=== PATIENT | male | born 1955 | race Caucasian/White ===

== ENCOUNTER → 2020-05-30 13:51 | Outpatient (CLI) | payer OTHER, SELFPAY ==
[2020-05-30 14:14] LABS: Hematocrit 46.3 % (40-54); Hemoglobin 15.7 g/dL (13.0-16.5); Mean Corp Hgb Conc 33.9 g/dL (32-36); Mean Corpuscular Hgb 28.3 pg (27.0-32.0); Mean Corpuscular Volume 83.6 fL (80-94); Mean Platelet Vol. 11.5 fl (6.2-12.0); Platelet Count 175 K/mm3 (150-450); RBC Distribution Width CV 13.2 % (11.6-14.6); RBC Distribution Width SD 39.5 fl (35.1-43.9); Red Blood Count 5.54 M/mm3 (4.6-6.2); White Blood Count 7.7 K/mm3 (4.4-11.0)
[2020-05-30 14:35] LABS: BUN 20 mg/dL (7-18); BUN/Creat Ratio 15.2 RATIO (10-20); Calcium,Total 9.3 mg/dL (8.5-10.1); Chloride 109 mmol/L (98-107); Creatinine, Serum 1.32 mg/dL (0.70-1.30); EST Glomerular Filtration Rate 58 mL/min (>60); Est Glom Filt Rate - Afr Amer 70 mL/min (>60); Glucose 90 mg/dL (74-106); Magnesium 2.1 mg/dL (1.6-2.6); Phosphorus 3.2 mg/dL (2.5-4.9); Potassium 3.8 mmol/L (3.5-5.1); Sodium Level 142 mmol/L (136-145); Uric Acid 7.3 mg/dL (3.5-7.2)
[2020-05-30 14:38] LABS: Vitamin D,25 Hydroxy 27.2 ng/mL
[2020-05-30 15:08] LABS: Microalbumin,Random Urine 19.7 mg/L (NO RANGE EST.); Microalbumin:Creatinine Ratio 7.1 mg/g CRE (<30 mg/g CRE)
[2020-05-30 15:19] LABS: PTHIN 34.5 pg/mL (18.4-80.1)
== END ==
PROVIDERS: Referring Provider Internal Medicine Nephrology; Visit Provider Internal Medicine Nephrology
DX: E55.9 Vitamin D deficiency, unspecified (principal); N18.3 Chronic kidney disease, stage 3 (moderate); M10.9 Gout, unspecified
CPT/HCPCS: 36415; 80069; 82043; 82306; 82570; 83735; 83970; 84550; 85027

== ENCOUNTER → 2020-08-30 09:10 | Outpatient (CLI) | payer OTHER, SELFPAY ==
--- NOTE | 2020-08-30 09:22 | US_ITS ---
STUDY: RENAL ULTRASOUND - COMPLETE REASON FOR EXAM: Male, 65 years old. 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 COMPARISON: None. FINDINGS: RIGHT KIDNEY: Normal location of the right kidney, which is normal in size. The right kidney measures 11.9 cm x 6.5 cm x 5.8 cm. There is a normal cortex of the right kidney. The renal cortex measures 11.6 cm. There is a 1.3 cm x 1 cm x 1 cm cyst. There are no right renal calculi. There is no right hydronephrosis. DISTAL RIGHT URETER: There is non-visualization of the distal right ureter. There is no demonstrated right ureterovesical junction calculus. There is a visualized right ureteral jet. LEFT KIDNEY: Normal location of the left kidney, which is normal in size. The left kidney measures 12.4 cm x 7.4 cm x 5.8 cm. There is a normal cortex of the left kidney. The renal cortex measures 1.9 cm. There is a 3 cm x 2.9 cm x 3.1 cm renal cysts. There are no left renal calculi. There is no left hydronephrosis. DISTAL LEFT URETER: There is non-visualization of the distal left ureter. There is no demonstrated left ureterovesical junction calculus. There is a visualized left ureteral jet. BLADDER: The distended urinary bladder has a volume of 332 ml. There is a normal wall thickness of the distended urinary bladder. There is no demonstrated mass within the urinary bladder. There are no demonstrated bladder calculi. Heterogeneous enlarged prostate measuring 4.3 cm x 6.2 cm x 4.9 cm. US/Kidney and Bladder IMPRESSION: Bilateral renal cysts. Enlarged and heterogeneous prostate. Electronically Signed: Jeremie Car, at 15:11 EST , Service support ,
[2020-08-30 10:04] LABS: PSA,Total- Diagnostic 7.27 ng/mL (0.0-4.0)
== END ==
PROVIDERS: Referring Provider Urology; Visit Provider Urology
DX: N28.1 Cyst of kidney, acquired (principal); N40.1 Benign prostatic hyperplasia with lower urinary tract symptoms
CPT/HCPCS: 36415; 76770; 84153

== ENCOUNTER → 2021-02-24 12:11 | Outpatient (CLI) | payer MEDICARE, OTHER, SELFPAY | PROVIDERS: PCP Family Medicine; Referring Provider Urology; Visit Provider Urology | DX: R97.20 Elevated prostate specific antigen [PSA] (principal) | CPT/HCPCS: 36415; 84153 ==

== ENCOUNTER → 2021-07-01 10:48 | Outpatient (CLI) | payer MEDICARE, OTHER, SELFPAY ==
[2021-07-01 11:50] LABS: Hematocrit 47.9 % (40-54); Hemoglobin 15.9 g/dL (13.0-16.5); Mean Corp Hgb Conc 33.2 g/dL (32-36); Mean Corpuscular Hgb 28.3 pg (27.0-32.0); Mean Corpuscular Volume 85.4 fL (80-94); Mean Platelet Vol. 11.6 fl (6.2-12.0); Platelet Count 173 K/mm3 (150-450); RBC Distribution Width CV 12.9 % (11.6-14.6); RBC Distribution Width SD 40.3 fl (35.1-43.9); Red Blood Count 5.61 M/mm3 (4.6-6.2); White Blood Count 4.9 K/mm3 (4.4-11.0)
[2021-07-01 12:07] LABS: Albumin, Serum 3.4 g/dL (3.2-5.0); BUN 33 mg/dL (7-18); BUN/Creat Ratio 21.4 RATIO (10-20); Calcium,Total 9.6 mg/dL (8.5-10.1); Chloride 105 mmol/L (98-107); Creatinine, Serum 1.54 mg/dL (0.70-1.30); EST Glomerular Filtration Rate 48 mL/min (>60); Est Glom Filt Rate - Afr Amer 59 mL/min (>60); Glucose 107 mg/dL (74-106); Magnesium 2.3 mg/dL (1.6-2.6); Phosphorus 2.9 mg/dL (2.5-4.9); Sodium Level 144 mmol/L (136-145)
[2021-07-01 12:09] LABS: Microalbumin,Random Urine 36.9 mg/L (NO RANGE EST.); Microalbumin:Creatinine Ratio 15.2 mg/g CRE (<30 mg/g CRE)
[2021-07-01 12:12] LABS: Vitamin D,25 Hydroxy 43.8 ng/mL
[2021-07-01 12:24] LABS: PTHIN 41.8 pg/mL (18.4-80.1)
== END ==
PROVIDERS: PCP Family Medicine; Referring Provider Internal Medicine Nephrology; Visit Provider Internal Medicine Nephrology
DX: E55.9 Vitamin D deficiency, unspecified (principal); N18.30 Chronic kidney disease, stage 3 unspecified; M10.9 Gout, unspecified
CPT/HCPCS: 36415; 80069; 82043; 82306; 82570; 83735; 83970; 84550; 85027

== ENCOUNTER → 2021-09-05 10:12 | Outpatient (CLI) | payer MEDICARE, OTHER, SELFPAY ==
[2021-09-05 11:34] LABS: PSA,Total - Annual Screen 5.52 ng/mL (0.00-4.00)
[2021-09-05 16:13] LABS: PSA,Total- Diagnostic 5.52 ng/mL (0.0-4.0)
== END ==
PROVIDERS: PCP Family Medicine; Referring Provider Urology; Visit Provider Urology
DX: R97.20 Elevated prostate specific antigen [PSA] (principal); Z12.5 Encounter for screening for malignant neoplasm of prostate
CPT/HCPCS: 36415; 84153; G0103

== ENCOUNTER 2021-12-29 11:54 | Outpatient (CLI) | payer MEDICARE, OTHER, SELFPAY ==
[2021-12-29 13:35] LABS: Hematocrit 47.9 % (40-54); Mean Corp Hgb Conc 33.4 g/dL (32-36); Mean Corpuscular Hgb 27.8 pg (27.0-32.0); Mean Corpuscular Volume 83.3 fL (80-94); Mean Platelet Vol. 11.4 fl (6.2-12.0); Platelet Count 153 K/mm3 (150-450); RBC Distribution Width SD 39.4 fl (35.1-43.9); Red Blood Count 5.75 M/mm3 (4.6-6.2); White Blood Count 6.5 K/mm3 (4.4-11.0)
[2021-12-29 13:53] LABS: Microalbumin,Random Urine 77.8 mg/L (NO RANGE EST.); Microalbumin:Creatinine Ratio 41.4 mg/g CRE (<30 mg/g CRE)
[2021-12-29 14:05] LABS: Albumin, Serum 3.9 g/dL (3.2-5.0); BUN 16 mg/dL (7-18); BUN/Creat Ratio 13.3 RATIO (10-20); Calcium,Total 9.2 mg/dL (8.5-10.1); Chloride 106 mmol/L (98-107); EST Glomerular Filtration Rate 64 mL/min (>60); Est Glom Filt Rate - Afr Amer 78 mL/min (>60); Glucose 116 mg/dL (74-106); Magnesium 2.2 mg/dL (1.6-2.6); PTHIN 42.6 pg/mL (18.4-80.1); Potassium 3.5 mmol/L (3.5-5.1); Sodium Level 140 mmol/L (136-145); Uric Acid 7.2 mg/dL (3.5-7.2)
== END 2021-12-29 23:59 | disposition home or self-care (01) ==
LOC: LAB 11:57
PROVIDERS: PCP Family Medicine; Visit Provider Internal Medicine Nephrology
DX: E55.9 Vitamin D deficiency, unspecified (principal); N18.31 Chronic kidney disease, stage 3a; M10.9 Gout, unspecified; E83.52 Hypercalcemia
CPT/HCPCS: 36415; 80069; 82043; 82306; 82570; 83735; 83970; 84550; 85027

== ENCOUNTER → 2022-08-24 | Outpatient (CLI) | payer MEDICARE, OTHER, SELFPAY ==
[2022-08-24 12:41] LABS: PSA,Total- Diagnostic 5.73 ng/mL (0.0-4.0)
== END | disposition home or self-care (01) ==
LOC: LAB 11:31
PROVIDERS: PCP Family Medicine; Visit Provider Urology
DX: N40.1 Benign prostatic hyperplasia with lower urinary tract symptoms (principal)
CPT/HCPCS: 36415; 84153

== ENCOUNTER → 2022-12-25 | Outpatient (CLI) | payer MEDICARE, OTHER, SELFPAY ==
[2022-12-25 11:25] LABS: Hemoglobin 16.4 g/dL (13.0-16.5); Mean Corp Hgb Conc 32.2 g/dL (32-36); Mean Corpuscular Hgb 27.8 pg (27.0-32.0); Mean Corpuscular Volume 86.4 fL (80-94); Mean Platelet Vol. 11.2 fl (6.2-12.0); Platelet Count 149 K/mm3 (150-450); RBC Distribution Width CV 13.1 % (11.6-14.6); RBC Distribution Width SD 40.3 fl (35.1-43.9); White Blood Count 5.4 K/mm3 (4.4-11.0)
[2022-12-25 11:44] LABS: Microalbumin,Random Urine 28.9 mg/L (NO RANGE EST.); Microalbumin:Creatinine Ratio 24.5 mg/g CRE (<30 mg/g CRE)
[2022-12-25 11:47] LABS: Albumin, Serum 3.9 g/dL (3.2-5.0); BUN 15 mg/dL (7-18); BUN/Creat Ratio 12.3 RATIO (10-20); Calcium,Total 9.4 mg/dL (8.5-10.1); Chloride 103 mmol/L (98-107); Creatinine, Serum 1.22 mg/dL (0.70-1.30); EST Glomerular Filtration Rate 63 mL/min (>60); Est Glom Filt Rate - Afr Amer 76 mL/min (>60); Glucose 114 mg/dL (74-106); Phosphorus 2.2 mg/dL (2.5-4.9); Potassium 3.7 mmol/L (3.5-5.1); Sodium Level 140 mmol/L (136-145)
[2022-12-25 11:49] LABS: Vitamin D,25 Hydroxy 33.3 ng/mL
[2022-12-25 12:33] LABS: PTHIN 39.5 pg/mL (18.4-80.1)
== END | disposition home or self-care (01) ==
PROVIDERS: PCP Family Medicine; Visit Provider Internal Medicine Nephrology
DX: N18.31 Chronic kidney disease, stage 3a (principal); E55.9 Vitamin D deficiency, unspecified; E83.52 Hypercalcemia
CPT/HCPCS: 36415; 80069; 82043; 82306; 82570; 83735; 83970; 85027

== ENCOUNTER → 2023-09-03 | Outpatient (CLI) | payer MEDICARE, OTHER, SELFPAY ==
[2023-09-03 11:05] LABS: PSA,Total - Annual Screen 6.25 ng/mL (0.00-4.00)
== END | disposition home or self-care (01) ==
LOC: LAB 09:27
PROVIDERS: PCP Family Medicine; Referring Provider Urology; Visit Provider Urology
DX: Z12.5 Encounter for screening for malignant neoplasm of prostate (principal); N40.1 Benign prostatic hyperplasia with lower urinary tract symptoms
CPT/HCPCS: 36415; 84153; G0103

== ENCOUNTER → 2023-12-14 | Outpatient (CLI) | payer MEDICARE, OTHER, SELFPAY ==
[2023-12-14 11:47] LABS: Hematocrit 50.3 % (40-54); Hemoglobin 16.3 g/dL (13.0-16.5); Mean Corp Hgb Conc 32.4 g/dL (32-36); Mean Corpuscular Hgb 27.4 pg (27.0-32.0); Mean Corpuscular Volume 84.7 fL (80-94); Mean Platelet Vol. 11.2 fl (6.2-12.0); Platelet Count 160 K/mm3 (150-450); RBC Distribution Width CV 12.9 % (11.6-14.6); RBC Distribution Width SD 39.6 fl (35.1-43.9); Red Blood Count 5.94 M/mm3 (4.6-6.2)
[2023-12-14 11:58] LABS: Protein, Urine (Random) 53.6 mg/dL (<11.9); Protein:Creat Ratio 161 mg/g CRE (0-200)
[2023-12-14 12:09] LABS: Albumin, Serum 3.9 g/dL (3.2-5.0); BUN 24 mg/dL (7-18); BUN/Creat Ratio 17.3 RATIO (10-20); Calcium,Total 9.4 mg/dL (8.5-10.1); Chloride 108 mmol/L (98-107); Creatinine, Serum 1.39 mg/dL (0.70-1.30); EST Glomerular Filtration Rate 54 mL/min (>60); Est Glom Filt Rate - Afr Amer 65 mL/min (>60); Glucose 165 mg/dL (74-106); Phosphorus 2.4 mg/dL (2.5-4.9); Potassium 3.5 mmol/L (3.5-5.1); Sodium Level 143 mmol/L (136-145); Uric Acid 7.1 mg/dL (3.5-7.2)
[2023-12-14 12:10] LABS: PTHIN 34.7 pg/mL (18.4-80.1)
[2023-12-14 12:13] LABS: Vitamin D,25 Hydroxy 60.5 ng/mL
== END | disposition home or self-care (01) ==
LOC: LAB 11:00
PROVIDERS: PCP Family Medicine; Referring Provider Internal Medicine Nephrology; Visit Provider Internal Medicine Nephrology
DX: I12.9 Hypertensive chronic kidney disease with stage 1 through stage 4 chronic kidney disease, or unspecified chronic kidney disease (principal); N18.31 Chronic kidney disease, stage 3a; E55.9 Vitamin D deficiency, unspecified
CPT/HCPCS: 36415; 80069; 82306; 82570; 83735; 83970; 84156; 84550; 85027

== ENCOUNTER → 2024-11-28 | Outpatient (CLI) | payer MEDICARE, OTHER, SELFPAY | END | disposition home or self-care (01) | LOC: LAB 13:07 | PROVIDERS: PCP Family Medicine; Referring Provider Urology; Visit Provider Urology | DX: N40.1 Benign prostatic hyperplasia with lower urinary tract symptoms (principal) | CPT/HCPCS: 36415; 84153 ==

== ENCOUNTER → 2024-12-21 | Outpatient (CLI) | payer MEDICARE, OTHER, SELFPAY ==
[2024-12-21 12:35] LABS: Hematocrit 49.4 % (40-54); Hemoglobin 16.4 g/dL (13.0-16.5); Mean Corp Hgb Conc 33.2 g/dL (32-36); Mean Corpuscular Hgb 28.2 pg (27.0-32.0); Mean Corpuscular Volume 84.9 fL (80-94); Mean Platelet Vol. 11.6 fl (6.2-12.0); Platelet Count 159 K/mm3 (150-450); RBC Distribution Width CV 13.2 % (11.6-14.6); RBC Distribution Width SD 40.6 fl (35.1-43.9); Red Blood Count 5.82 M/mm3 (4.6-6.2); White Blood Count 7.5 K/mm3 (4.4-11.0)
[2024-12-21 13:51] LABS: Vitamin D,25 Hydroxy 48.7 ng/mL (30-100)
[2024-12-21 13:55] LABS: PTHIN 23 pg/mL (11-61)
[2024-12-21 14:24] LABS: Magnesium 1.9 mg/dL (1.5-2.2); Uric Acid 5.8 mg/dL (3.5-7.2)
[2024-12-21 15:03] LABS: Albumin, Serum 4.3 g/dL (3.4-4.8); BUN 17 mg/dL (4-19); Calcium 10.4 mg/dL (7.6-11.0); Carbon Dioxide 27.7 mmol/L (22.0-29.0); Chloride 103 mmol/L (96-108); Creatinine, Serum 1.1 mg/dL (0.8-1.3); EST Glomerular Filtration Rate 76 (>60); Glucose 187 mg/dL (70-99); Potassium 3.9 mmol/L (3.3-5.1); Sodium Level 142 mmol/L (133-145)
[2024-12-21 23:05] LABS: Protein, Urine (Random) 42.2 mg/dL (0.0-12.0); Protein:Creat Ratio 187 mg/g CRE (0-200)
== END | disposition home or self-care (01) ==
PROVIDERS: PCP Family Medicine; Referring Provider Internal Medicine Nephrology; Visit Provider Internal Medicine Nephrology
DX: M10.9 Gout, unspecified (principal); N18.31 Chronic kidney disease, stage 3a; E55.9 Vitamin D deficiency, unspecified
CPT/HCPCS: 36415; 80069; 82306; 82570; 83735; 83970; 84156; 84550; 85027

== ENCOUNTER → 2025-08-10 | Outpatient (CLI) | payer MEDICARE, OTHER, SELFPAY ==
[2025-08-10 11:05] LABS: Hematocrit 45.6 % (40-54); Hemoglobin 15.1 g/dL (13.0-16.5); Mean Corp Hgb Conc 33.1 g/dL (32-36); Mean Corpuscular Volume 85.1 fL (80-94); Mean Platelet Vol. 10.9 fl (6.2-12.0); Platelet Count 176 K/mm3 (150-450); RBC Distribution Width CV 13.3 % (11.6-14.6); RBC Distribution Width SD 41.0 fl (35.1-43.9); Red Blood Count 5.36 M/mm3 (4.6-6.2); White Blood Count 6.8 K/mm3 (4.4-11.0)
[2025-08-10 11:47] LABS: AST(SGOT) 50 U/L (<=37); Alanine Aminotransfer ALT/SGPT 85 U/L (<=46); Albumin, Serum 4.4 g/dL (3.4-4.8); Alkaline Phosphatase 58 U/L (40-129); Anion Gap 11 (5-15); BUN 18 mg/dL (4-19); BUN/Creat Ratio 14.7 RATIO (10-20); Calcium,Total 10.0 mg/dL (7.6-11.0); Carbon Dioxide 26.4 mmol/L (21.0-32.0); Chloride 102 mmol/L (98-108); Cholesterol 181 mg/dL (<=200); Globulin 3.1 g/dL (2.2-4.2); Glucose 136 mg/dL (70-99); Low Density Lipoprotein Calc. 88 mg/dL; PSA,Total - Annual Screen 10.90 ng/mL (0.02-4.00); Potassium 3.8 mmol/L (3.3-5.1); Triglycerides 391 mg/dL; Very Low Density Lipoprotein 78 mg/dL (5-40); Vitamin B12 478 pg/mL (180-914); Vitamin D,25 Hydroxy 40.9 ng/mL (30-100); cholesterol:hdl ratio screen 6.37
== END | disposition home or self-care (01) ==
PROVIDERS: PCP Family Medicine; Referring Provider Family Medicine; Visit Provider Family Medicine
DX: R73.03 Prediabetes (principal); N40.0 Benign prostatic hyperplasia without lower urinary tract symptoms; E78.00 Pure hypercholesterolemia, unspecified; E55.9 Vitamin D deficiency, unspecified; Z79.899 Other long term (current) drug therapy; Z12.5 Encounter for screening for malignant neoplasm of prostate
CPT/HCPCS: 36415; 80053; 80061; 82306; 82607; 83036; 84153; 84443; 85027; G0103

== ENCOUNTER → 2025-09-21 | Outpatient (CLI) | payer MEDICARE, OTHER, SELFPAY ==
--- OUTSIDE RECORDS SUMMARY | 2025-09-21 10:29 | XMS RPT_ITS | CCD ---
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 ng/mL Normal 30-100 [facility] Comment on above: Result Comment: Mine min D Status Deficiency: <20 ng/mL (50nmol/L) Insufficiency: 20-30 ng/mL (50-75 nmol/L) Sufficiency: 30-100 ng/mL (75-250 nmol/L) Toxicity: >100 ng/mL (>250 nmol/L) Performed By: #### L 500.3600, L506.1001, L100.0500, L509.1000, L501.1400, L501.0900, L501.5200 #### [facility] [address] [place], [place], [id number] Assessment AND Plan Noteon 1 Trans Router Authentication Interface Message Text Orders: FULL LIPID PROFILE TSH EXTERNAL SERVICE [facility] Trans Router Authentication Interface Message Text Orders: HEPATIC FUNCTION PANEL BASIC METABOLIC PANEL COMPLETE BLOOD COUNT W/DIFF VITAMIN B12 (CYANOCOBALAMIN) EXTERNAL SERVICE REQUEST [facility] CARE [facility] Normal [facility] Trans Router Authentication Interface Message Text Normal [facility] Trans Router Authentication Interface Message Text Orders: HEMOGLOBIN A1C EXTERNAL SERVICE REQUEST [facility] Normal [facility] Patient Instructionson 08-09 Trans Router Authentication Interface Message Text Personalized Preventive Plan for Tom Tejeda - 08/09/2025 - A preventive eye exam performed by an loss mitigation specialist is recommended every 1-2 years to screen for glaucoma, cataracts, macular degeneration, and other eye disorders - A preventive dental visit is recommended every 6 months - Try to get at least 150 minutes of exercise per week or 10,000 steps per day on a pedometer - Order FREE booklet Get Fit For Life: Exercise AND Physical Activity for Healthy Aging from [employer] on Agin1-105.493.4743 or https://order.jyotsna.nih.gov/p ublication/cqp-nlb-xek-life -kezkirhf-uskknmkf-txltahz t-emu-jojznrn-aging - You need 5235-1967 mg of calcium and 6397-9930 IU of vitamin D per day - it is possible to meet your calcium requirement with diet alone, but a vitamin D supplement is usually necessary to meet this goal - When exposed to sun, use a sunscreen that protects against both UVA and UVB radiation with an SPF of 30 or greater - reapply every 2 to 3 hours or after sweating, drying off with a towel, or swimming - Always wear a seat belt when traveling in a car, and a helmet when riding a bicycle or motorcycle Normal [facility] Progress Noteson 08-09-2025 Trans Router Authentication Interface Message Text ANNUAL WELLNESS VISIT Subjective Mr. Tejeda is a 70 year old who is being seen for his Annual Wellness Visit. I have reviewed and updated the following information (Care Team, Medical History, Surgical History, Family History, Social History and current medications including hyfw-mmc-bxnvlth medications and supplements): Patient Care Team: Charles Mcknight MD as PCP - General (Family Medicine) Medical History[1], Surgical History[2], Family History[3], Social History[4], Medications Ordered Prior to Encounter[5] I have reviewed the following additional information for Mr. Tejeda. Falls Risk Screen Falls Risk Screen Fall History (past 12 months): No Fallen with Injury?: No Problems with Walking or Balance?: No Adult Falls Screen Ambulates?: Yes Dizziness/Falls in the past 12 months?: (!) Dizziness Injured? Describe the injury.: No Unsteady/Shuffling gait?: No Assistive device (e.g. cane, walker, etc.)?: No Vision changes?: No PHQ Depression Screen PHQ-9 Depression Screen (over the last 2 weeks...) Decreased Interest / Pleasure?: Not at all Down / Depressed / Hopeless?: Not at all PHQ-2 Total: 0 PHQ2 Interpretation: Screening is Negative Hearing Screen Hearing Screen Have you noticed any changes with your hearing? : No Vision Screen Vision Screen Have you noticed any changes with your vision? : No Advance Directives Advance Directives Advance Directives?: Yes - paper copy not with patient Type of Advance Directive: Living Will Mini COG Mini-Cog (TM) Copyright Elise Ramires (used by permission of the author) Remember FIRST word?: Yes Remember SECOND word?: (!) No Remember THIRD word?: Yes Clock Diagram correct?: Yes Mini COG Total Score: 4 Health Risk Assessment Health Risk Assessment Flowsheet Row Patient response During the past four weeks, how much have you been bothered by emotional problems such as feeling anxious, depressed, irritable, sad, or downhearted and blue? Not at all at 08/09/20251446 During the past four weeks, has your physical and emotional health limited your social activities with family, friends, neighbors, or groups? Not at all at 08/09/20251446 During the past four weeks, how much bodily pain have you generally had? Mild at 08/09/20251446 During the past four weeks, was someone available to help you if you needed and wanted help? Yes, as much as I want at 08/09/20251446 During the past four weeks, what was the hardest physical activity you could do for at least two minutes? Heavy at 08/09/20251446 Can you get to places out of walking distance without help? Y at 08/09/20251446 Can you go shopping for groceries or clothes without someone's help? Y at 08/09/20251446 Can you prepare your own meals? Y at 08/09/20251446 Can you do your housework without help? Y at 08/09/20251446 Because of any health problems, do you need the help of another person with your personal care needs? N at 08/09/20251446 Can you handle your own money without help? Y at 08/09/20251446 During the past four weeks, how would you rate your health in general? Good at 08/09/20251446 How have things been going for you during the past four weeks? Pretty well at 08/09/20251446 Are you having difficulties driving your car? No at 08/09/20251446 Do you fasten your seatbelt when you are in a car? Always at 08/09/20251446 Falling or feeling dizzy when standing up? (past 4 weeks) Seldom at 08/09/20251446 Sexual problems? (past 4 weeks) Never at 08/09/20251446 Trouble eating well? (past 4 weeks) Never at 08/09/20251446 Tooth or denture problems? (past 4 weeks) Never at 08/09/20251446 Problems using the telephone? (past 4 weeks) Never at 08/09/20251446 Tiredness or fatigue? (past 4 weeks) Sometimes at 08/09/20251446 Do you exercise for about 20 minutes three or more days a week? Yes, some of the time at 08/09/20251446 Have you been given any information to help you with hazards in your house that might hurt you? N at 08/09/20251446 Have you been given any information to help you with keeping track of your medications? N at 08/09/20251446 How often do you have trouble taking medicines the way you have been told to take them? I always take them as prescribed at 08/09/20251446 How confident are you that you can control and manage most of your health problems? Somewhat confident at 08/09/20251446 Objective BP 134/84 Pulse 78 Temp 97.9 ???F (36.6 ???C) Resp 16 Ht 5' 11 (1.803 m) Wt 233 lb 12.8 oz (106.1 kg) SpO2 96% BMI 32.61 kg/m??? wnl Assessment AND Plan Medicare annual wellness visit, subsequent Essential hypertension Idiopathic chronic gout of multiple sites without tophus Prediabetes Orders: HEMOGLOBIN A1C EXTERNAL SERVICE REQUEST FOR CARE OUTSIDE THE [employer] [facility] Encounter for long-term (current) use of medications Orders: HEPATIC FUNCTION PANEL BASIC METABOLIC PANEL COMPLETE BLOOD COUNT W (more content not included)... Normal [facility] CNCONon 07-19-2025 CNCON Consults (NE50MN) TOM TEJEDA ([id number]) 1955 M Date Time Provider Department 07/19/25 LUCAS SOLISAD NE50MN During your visit today, we recorded the following information about you: Brooklyn Woods APRN.CNP 07/20/2025 9:19 AM Signed [facility] Review of Records Patient: Tom Tejeda Address: [address] [place] [address] Impression: Review of records for Tom Tejeda, a 70 year old male, being referred by Self to Any Epileptologist for further evaluation and treatment. Patient has previously diagnosed seizures. EEG and MRI reports are not available. Patient has trialed 1 AED. Since he reports > 1 year since his last episode, would start with a routine EEG and consultation with an Epileptologist. 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 [address] [place] [address] EEG (Patient is unsure): MRI brain wo/w contrast (-): FELI Recommendations: - Routine EEG, consult with an Epileptologist - Additional testing to be considered by epilepsy clinicians Signed: Brooklyn Woods APRN.[employer] DEPARTMENT HEAD July 19, [address] Solis for review and recommendations. MD Recommendations (as discussed with Dr. Solis): - Please proceed with the above plan. Allergies As of Date: 07/19/2025 Noted Allergy Reaction SEASONAL ALLERGIES 04/09/2014 16 - Unknown Date Reviewed: 11/05/2017 Reviewed by: Naomy Prince (Heatset Winder Operator), LUCIANO - Fully Assessed Primary Visit Diagnosis:Seizure (HCC) [R56.9] Order(s):EPIL EEG ROUTINE [[id number]] Order #: [id number]: 1 Prescriptions as of 07/20/2025 - saw palmetto frt/phytosterol 2 (PROSTATE SR) 160-250 mg cap Take by mouth. - cholecalciferol (VITAMIN D3) 1,000 unit tab Take 2 tablets by mouth once daily. - allopurinol (ZYLOPRIM) 300 mg tablet Take 300 mg by mouth once daily. - losartan-hydrochlorothiazid e (HYZAAR) 100-25 mg per tablet Take 1 tablet by mouth once daily. - Fenofibrate (LOFIBRA) 160 mg tablet Take 160 mg by mouth once daily. - colchicine 0.6 mg tablet Take 0.6 mg by mouth once daily. - [place]-3 Fatty Acids-Vitamin E 1,000 mg cap Take 1 capsule by mouth. - niacin (NIACIN) 500 mg tablet Take 500 mg by mouth daily with breakfast. Problem List As Of Date: 07/19/2025 (None) Letter Text Encounter Status:Closed by BROOKLYN WOODS on 07/20/25 Normal [facility] Telephone Encounteron 2024 Trans Router Authentication Interface Message Text Received fax of lab results from [facility]. Scanned into media. Routing to provider for review. Normal [facility] BUN/creatinine ratioOrdered By: Nadeem Alba on 12-21-2024 Urea nitrogen/Creatinine [Mass ratio] 16.0 mg/mg 10-20 [facility] CBC-Complete Blood Cnt No Di ffon 12-21-2024 Erythrocyte distribution width (RBC) [Ratio] 13.2 % Normal 11.6-14.6 [facility] Comment on above: Performed By: #### L 500.3600, L506.1001, L100.0500, L509.1000, L501.1400, L501.0900, L501.5200 #### [facility] [address] [place], [address] Hematocrit (Bld) [Volume fraction] 49.4 % Normal 40-54 [facility] Comment on above: Performed By: #### L 500.3600, L506.1001, L100.0500, L509.1000, L501.1400, L501.0900, L501.5200 #### [facility] [address] [place], [address] Hemoglobin (Bld) [Mass/Vol] 16.4 g/dL Normal 13.0-16.5 [facility] Comment on above: Performed By: #### L 500.3600, L506.1001, L100.0500, L509.1000, L501.1400, L501.0900, L501.5200 #### [facility] [address] [place], [address] MCH (RBC) [Entitic mass] 28.2 pg Normal 27.0-32.0 [facility] Comment on above: Performed By: #### L 500.3600, L506.1001, L100.0500, L509.1000, L501.1400, L501.0900, L501.5200 #### [facility] [address] [place], [address] MCHC (RBC) [Mass/Vol] 33.2 g/dL Normal 32-36 [facility] Comment on above: Performed By: #### L 500.3600, L506.1001, L100.0500, L509.1000, L501.1400, L501.0900, L501.5200 #### [facility] [address] [place], [address] MCV (RBC) [Entitic vol] 84.9 fL Normal 80-94 [facility] Comment on above: Performed By: #### L 500.3600, L506.1001, L100.0500, L509.1000, L501.1400, L501.0900, L501.5200 #### [facility] [address] [place], [address] Platelet mean volume (Bld) [Entitic vol] 11.6 fL Normal 6.2-12.0 [facility] Comment on above: Performed By: #### L 500.3600, L506.1001, L100.0500, L509.1000, L501.1400, L501.0900, L501.5200 #### [facility] [address] [place], [address] Platelets (Bld) [#/Vol] 159 10*3/uL Normal 150-450 [facility] Comment on above: Performed By: #### L 500.3600, L506.1001, L100.0500, L509.1000, L501.1400, L501.0900, L501.5200 #### [facility] [address] [place], [address] RBC (Bld) [#/Vol] 5.82 10*6/uL Normal 4.6-6.2 [facility] Comment on above: Performed By: #### L 500.3600, L506.1001, L100.0500, L509.1000, L501.1400, L501.0900, L501.5200 #### [facility] [address] [place], [address] RDW SD 40.6 fl Normal 35.1-43.9 [facility] Comment on above: Performed By: #### L 500.3600, L506.1001, L100.0500, L509.1000, L501.1400, L501.0900, L501.5200 #### [facility] [address] [place], [place], [id number] WBC (Bld) [#/Vol] 7.5 10*3/uL Normal 4.4-11.0 [facility] Comment on above: Performed By: #### L 500.3600, L506.1001, L100.0500, L509.1000, L501.1400, L501.0900, L501.5200 #### [facility] [address] [place], [address] Carbon dioxide measurementOr dered By: Nadeem Alba on 12-21-2024 CO2 [Moles/Vol] 27.7 mmol/L 22.0-29.0 [facility] Chloride measurementOrdered By: Nadeem Loweryphaichijosette on 12-21-2024 Chloride [Moles/Vol] 103 mmol/L 96-108 [facility] Creatinine Unsp time (U) [Ma ss/Vol]Ordered By: [facility]peoples [facility] on 12-21-2024 Creatinine (U) [Mass/Vol] 226.00 mg/dL 39-259 [facility] Creatinine [Moles/Vol]Ordere d By: Charmainechinedu Delatorreichijosette on 12-21-2024 Creatinine [Mass/Vol] 1.1 mg/dL 0.8-1.3 [facility] Erythrocyte distribution wid th ratioOrdered By: Nadeem Delatorreichitr on 12-21-2024 Erythrocyte distribution width (RBC) [Ratio] 13.2 % 11.6-14.6 [facility] Erythrocyte distribution wid th standard deviationOrdered By: Charmainechinedu Delatorreglens falls hospitaltr on 12-21-2024 Erythrocyte distribution width (RBC) [Entitic vol] 40.6 fL 35.1-43.9 [facility] GFR/1.73 sq M.predicted catalina g non-blacks MDRD (S/P/Bld) [Vol rate/Area]Ordered By: Nadeem Delatorreichijosette on 12-21-2024 Estimated GFR (MDRD) Non-Af Amer [address] >60 [facility] Comment on above: mL/min/1.73m2 CKD-EP I Creatinine Equation (2020) Hematocrit Auto (Bld) [Volum e fraction]Ordered By: Nadeem Alba on 12-21-2024 Hematocrit (Bld) [Volume fraction] 49.4 % 40-54 [facility] Hemoglobin measurementOrdere d By: Charmainechinedu Alba on 12-21-2024 Hemoglobin (Bld) [Mass/Vol] 16.4 g/dL 13.0-16.5 [facility] Intact parathyroid hormone ( iPTH) measurementOrdered By: Charmainechinedu Alba on 12-21-2024 Parathyroid Hormone (Intact) 23 pg/mL 11-61 [facility] L506.1001on 12-21-2024 Vitamin D 25-OH 48.7 ng/mL Normal 30-100 [facility] Comment on above: Result Comment: Mine min D Status Deficiency: <20 ng/mL (50nmol/L) Insufficiency: 20-30 ng/mL (50-75 nmol/L) Sufficiency: 30-100 ng/mL (75-250 nmol/L) Toxicity: >100 ng/mL (>250 nmol/L) Performed By: #### L 500.3600, L506.1001, L100.0500, L509.1000, L501.1400, L501.0900, L501.5200 #### [facility] [address] [place], [address] MCV (mean corpuscular volume ) determinationOrdered By: Nadeem Alba on 12-21-2024 MCV (RBC) [Entitic vol] 84.9 fL 80-94 [facility] Magnesiumon 12-21-2024 Magnesium [Mass/Vol] 1.9 mg/dL Normal 1.5-2.2 [facility] Comment on above: Performed By: #### L 500.3600, L506.1001, L100.0500, L509.1000, L501.1400, L501.0900, L501.5200 #### [facility] [address] [place], [address] Magnesium (Unsp spec) [Mass/ Vol]Ordered By: Nadeem Alba on 12-21-2024 Magnesium [Mass/Vol] 1.9 mg/dL 1.5-2.2 [facility] Mean corpuscular hemoglobin (MCH) determinationOrdered By: Nadeem Alba on 12-21-2024 MCH (RBC) [Entitic mass] 28.2 pg 27.0-32.0 [facility] Mean corpuscular hemoglobin concentration (MCHC) determinationOrdered By: Nadeem Alba on 12-21-2024 MCHC (RBC) [Mass/Vol] 33.2 g/dL 32-36 [facility] Mean platelet volume determi nationOrdered By: Nadeem Alba on 12-21-2024 Platelet mean volume (Bld) [Entitic vol] 11.6 fL 6.2-12.0 [facility] No Panel InformationOrdered By: Nadeem Alba on 12-21-2024 Vitamin D 25-Hydroxy 48.7 ng/mL 30-100 [facility] Comment on above: Vitamin D StatusDefi ciency: <20 ng/mL (50nmol/L)Insufficiency: 20-30 ng/mL (50-75 nmol/L)Sufficiency: 30-100 ng/mL (75-250 nmol/L)Toxicity: >100 ng/mL (>250 nmol/L) PTHINon 12-21-2024 PTH 23 pg/mL Normal 11-61 [facility] Comment on above: Performed By: #### L 500.3600, L506.1001, L100.0500, L509.1000, L501.1400, L501.0900, L501.5200 #### [facility] [address] [place], [address] Platelet countOrdered By: Bhumi Alba on 12-21-2024 Platelets (Bld) [#/Vol] 159 10*3/uL 150-450 [facility] Protein+Creatinine Ratio,Uri neon [id number] PROT:CRE RATIO 187 mg/g CRE Normal 0-200 [facility] Comment on above: Performed By: #### L 501.0900 #### [facility] [address] [place], [address] Protein (U) [Mass/Vol] 42.2 mg/dL High 0.0-12.0 [facility] Comment on above: Performed By: #### L 501.0900 #### [facility] [address] [place], [address] UR CREAT 226.00 mg/dL Normal 39-259 [facility] Comment on above: Performed By: #### L 501.0900 #### [facility] [address] [place], [address] UR CREAT 223.00 mg/dL Normal NO RANGE EST. [facility] Comment on above: Result Comment: ZEE OBRIEN Performed By: #### L 500.3600, L506.1001, L100.0500, L509.1000, L501.1400, L501.0900, L501.5200 #### [facility] [address] [place], [address] PROT:CRE RATIO Normal 0-200 [facility] Comment on above: Result Comment: ZEE OBRIEN Performed By: #### L 500.3600, L506.1001, L100.0500, L509.1000, L501.1400, L501.0900, L501.5200 #### [facility] [address] [place], [address] PROTEIN,UR.RAN. Normal <=12 [facility] Comment on above: Result Comment: ZEE OBRIEN Performed By: #### L 500.3600, L506.1001, L100.0500, L509.1000, L501.1400, L501.0900, L501.5200 #### [facility] [address] [place], [address] Protein/Creatinine (U) [Mass ratio]Ordered By: Nadeem Alba on 12-21-2024 Urine Protein/Creatinine Ratio 187 mg/g CRE 0-200 [facility] RBC Auto (Bld) [#/Vol]Ordere d By: Nadeem Loweryphaichijosette on 12-21-2024 RBC (Bld) [#/Vol] 5.82 10*6/uL 4.6-6.2 [facility] Renal Profileon 12-21-2024 Albumin [Mass/Vol] 4.3 g/dL Normal 3.4-4.8 [facility] Comment on above: Performed By: #### L 500.3600, L506.1001, L100.0500, L509.1000, L501.1400, L501.0900, L501.5200 #### [facility] [address], [address] BUN/CRE 16.0 RATIO Normal 10-20 [facility] Comment on above: Performed By: #### L 500.3600, L506.1001, L100.0500, L509.1000, L501.1400, L501.0900, L501.5200 #### [facility] [address] [place], [address] Calcium [Mass/Vol] 10.4 mg/dL Normal 7.6-11.0 [facility] Comment on above: Performed By: #### L 500.3600, L506.1001, L100.0500, L509.1000, L501.1400, L501.0900, L501.5200 #### [facility] [address] [place], [address] Chloride [Moles/Vol] 103 mmol/L Normal 96-108 [facility] Comment on above: Performed By: #### L 500.3600, L506.1001, L100.0500, L509.1000, L501.1400, L501.0900, L501.5200 #### [facility] [address] [place], [address] CO2 [Moles/Vol] 27.7 mmol/L Normal 22.0-29.0 [facility] Comment on above: Performed By: #### L 500.3600, L506.1001, L100.0500, L509.1000, L501.1400, L501.0900, L501.5200 #### [facility] [address] [place], [address] Creatinine [Mass/Vol] 1.1 mg/dL Normal 0.8-1.3 [facility] Comment on above: Performed By: #### L 500.3600, L506.1001, L100.0500, L509.1000, L501.1400, L501.0900, L501.5200 #### [facility] [address] [place], [address] GFR/1.73 sq M.predicted among non-blacks MDRD (S/P/Bld) [Vol rate/Area] 76 mL/min/{1.73_m2} Normal >60 [facility] Comment on above: Result Comment: mL/m in/1.73m2 CKD-EPI Creatinine Equation (2020) Performed By: #### L 500.3600, L506.1001, L100.0500, L509.1000, L501.1400, L501.0900, L501.5200 #### [facility] [address] [place], [address] Glucose [Mass/Vol] 187 mg/dL High 70-99 [facility] Comment on above: Performed By: #### L 500.3600, L506.1001, L100.0500, L509.1000, L501.1400, L501.0900, L501.5200 #### [facility] [address] [place], [address] Potassium [Moles/Vol] 3.9 mmol/L Normal 3.3-5.1 [facility] Comment on above: Result Comment: Hemo lysis present, Results??could be affected. ?? Performed By: #### L 500.3600, L506.1001, L100.0500, L509.1000, L501.1400, L501.0900, L501.5200 #### [facility] [address] [place], [place], [id number] Sodium [Moles/Vol] 142 mmol/L Normal 133-145 [facility] Comment on above: Performed By: #### L 500.3600, L506.1001, L100.0500, L509.1000, L501.1400, L501.0900, L501.5200 #### [facility] [address] [place], [place], [id number] Urea nitrogen [Mass/Vol] 17 mg/dL Normal 4-19 [facility] Comment on above: Performed By: #### L 500.3600, L506.1001, L100.0500, L509.1000, L501.1400, L501.0900, L501.5200 #### [facility] [address] [place], [place], [id number] Serum glucose measurement (m ass/volume)Ordered By: Nadeem Alba on 12-21-2024 Glucose [Mass/Vol] 187 mg/dL High 70-99 [facility] Serum or plasma albumin martha urement (mass/volume)Ordered By: Charmainechinedu Alba on 12-21-2024 Albumin [Mass/Vol] 4.3 g/dL 3.4-4.8 [facility] Serum or plasma calcium martha urement (mass/volume)Ordered By: Nadeem Alba on 12-21-2024 Calcium [Mass/Vol] 10.4 mg/dL 7.6-11.0 [facility] Serum or plasma potassium me asurementOrdered By: Nadeem Alba on 12-21-2024 Potassium [Moles/Vol] 3.9 mmol/L 3.3-5.1 [facility] Comment on above: Hemolysis present, R esults could be affected. Serum or plasma sodium measu rement (moles/volume)Ordered By: [facility]peoples hospital[facility] on 12-21-2024 Sodium [Moles/Vol] 142 mmol/L 133-145 [facility] Serum or plasma urea nitroge n measurement (mass/volume)Ordered By: [facility]peoples [facility] on 12-21-2024 Urea nitrogen [Mass/Vol] 17 mg/dL 4-19 [facility] Serum or plasma uric acid me asurement (mass/volume)Ordered By: [facility]armainepeoples hospitalalex[facility]r [facility] on 12-21-2024 Urate [Mass/Vol] 5.8 mg/dL 3.5-7.2 [facility] Comment on above: The drugs N-Acetylcy steine and Metamizole may falsely depress this assay. Serum phosphorus measurement Ordered By: [facility]peoples hospital[facility] on 12-21-2024 Phosphorus Level 3.0 mg/dL 2.7-4.5 [facility] Uric Acidon 12-21-2024 URIC 5.8 mg/dL Normal 3.5-7.2 [facility] Comment on above: Result Comment: The drugs N-Acetylcysteine and Metamizole may falsely depress this assay. Performed By: #### L 500.3600, L506.1001, L100.0500, L509.1000, L501.1400, L501.0900, L501.5200 #### [facility] [address] [place], [address] Urine protein measurement (m ass/volume)Ordered By: Nadeem [facility] on 12-21-2024 Protein (U) [Mass/Vol] 42.2 mg/dL High 0.0-12.0 [facility] White blood cell (WBC) count Ordered By: [facility]peoples hospital[facility] on 12-21-2024 WBC (Bld) [#/Vol] 7.5 10*3/uL 4.4-11.0 [facility] Telephone Encounteron 2024 Trans [employer] Authentication Interface Message Text Patient was identified by name and date of . Emily Toscano MA Spoke with pt and advised that we received test results for PSA from [facility]. Advised the results were high. Pt has an appointment on Wednesday morning at Dr. Riggins, [facility]. Pt does not have MyChart to give him results. Advised will fax results to Dr. Riggins. Pt verbalized an understanding. Faxed successfully. Scanned into media. Normal [facility] Telephone Encounteron 2024 Trans Router Authentication Interface Message Text Received fax from [facility], Department of Laboratories. Scanned into media. Routing to provider for review. Lab result shows PSA, Diagnostic, 10.8. Normal [facility] Diagnostic total prostate sp ecific antigen (PSA) measurementOrdered By: ROBERT RIGGINS on 11-28-2024 Prostate Specific Antigen Total 10.80 ng/mL High 0.0-4.0 [facility] Comment on above: This test was perfor med using the TPSA assay method for the[employer] chemistry system. Values obtained with differentassay methods cannot be used interchangably.When changing PSA assays in the course of monitoring apatient, additional sequential testing should be carriedout to confirm baseline values. PSA,Total- [employer] PSA, DIAGNOSTIC 10.80 ng/mL High 0.0-4.0 [facility] Comment on above: Result Comment: This test was performed using the TPSA assay method for the [employer] system. Values obtained with different assay methods cannot be used interchangably. When changing PSA assays in the course of monitoring a patient, additional sequential testing should be carried out to confirm baseline values. Performed By: #### L 501.9940 #### [facility] [address] [place], [address] Basophil percentageOrdered B y: Natthavat Tanphaichitr on 12-14-2023 Basophil percentage 2.4 mg/dL 2.5-4.9 [facility] Chloride [Moles/Vol] 108 mmol/L 98-107 [facility] Glucose [Mass/Vol] 165 mg/dL 74-106 [facility] Comment on above: Fasting Glucose resu lt greater than or equal to 126 mg/dL suggests DIABETES MELLITUS per A.D.A. criteria. Hemoglobin (Bld) [Mass/Vol] 16.3 g/dL 13.0-16.5 [facility] Potassium [Moles/Vol] 3.5 mmol/L 3.5-5.1 [facility] Sodium [Moles/Vol] 143 mmol/L 136-145 [facility] WBC (Bld) [#/Vol] 7.0 10*3/uL 4.4-11.0 [facility] Determination of erythrocyte mean corpuscular volume (MCV)Ordered By: Nadeem Alba on 12-14-2023 MCV (RBC) [Entitic vol] 84.7 fL 80-94 [facility] Erythrocyte distribution wid th ratioOrdered By: [facility] on 12-14-2023 Erythrocyte distribution width (RBC) [Ratio] 12.9 % 11.6-14.6 [facility] Erythrocyte distribution wid th standard deviationOrdered By: Charmainepeoples hospitalalexandr [facility] on 12-14-2023 Erythrocyte distribution width (RBC) [Entitic vol] 39.6 fL 35.1-43.9 [facility] Hematocrit Auto (Bld) [Volum e fraction]Ordered By: [facility] on 12-14-2023 Hematocrit (Bld) [Volume fraction] 50.3 % 40-54 [facility] - Chemistry and C hemistry - challengeOrdered By: Charmainechinedu Alba on 12-14-2023 CO2 [Moles/Vol] 27.0 mmol/L 21.0-32.0 [facility] Magnesium [Mass/Vol] 2.0 mg/dL 1.6-2.6 [facility] Urea nitrogen/Creatinine [Mass ratio] 17.3 mg/mg 10-20 [facility] - Hematology and Cell countsOrdered By: Charmainechinedu Alba on 12-14-2023 MCH (RBC) [Entitic mass] 27.4 pg 27.0-32.0 [facility] MCHC (RBC) [Mass/Vol] 32.4 g/dL 32-36 [facility] Platelet mean volume (Bld) [Entitic vol] 11.2 fL 6.2-12.0 [facility] Platelets (Bld) [#/Vol] 160 10*3/uL 150-450 [facility] No Panel InformationOrdered By: Nadeem Alba on 12-14-2023 Estimated GFR (MDRD) Amer 65 mL/min >60 [facility] Comment on above: GFR Calc Estimated GFR (MDRD) Non-Af Amer 54 mL/min >60 [facility] Comment on above: Non- GFR Calc Parathyroid Hormone (Intact) 34.7 pg/mL 18.4-80.1 [facility] Vitamin D 25-Hydroxy 60.5 ng/mL [facility] Comment on above: Vitamin D 25(OH) Sta tus Range Deficiency <20 ng/mL (50nmol/L) Insufficiency 20 - 30 ng/mL (50 - 75 nmol/L) Sufficiency 30 - 100 ng/mL (75 - 250 nmol/L) Toxicity >100 ng/mL (>250 nmol/L) RBC Auto (Bld) [#/Vol]Ordere d By: Nadeem Delatorreichijosette on 12-14-2023 RBC (Bld) [#/Vol] 5.94 10*6/uL 4.6-6.2 [facility] Serum or plasma calcium martha urement (mass/volume)Ordered By: Nadeem Delatorreichijosette on 12-14-2023 Calcium [Mass/Vol] 9.4 mg/dL 8.5-10.1 [facility] Serum or plasma creatinine m easurement (mass/volume)Ordered By: Nadeem Delatorreichijosette on 12-14-2023 Creatinine [Mass/Vol] 1.39 mg/dL 0.70-1.30 [facility] Comment on above: The validity of the calculated GFR & GFRAA in patients over 70 years has not been determined. Clinical correlation is essential. Serum or plasma urea nitroge n measurement (mass/volume)Ordered By: Nadeem Delatorreichijosette on 12-14-2023 Urea nitrogen [Mass/Vol] 24 mg/dL 7-18 [facility] Serum or plasma uric acid me asurement (mass/volume)Ordered By: Nadeem Alba on 12-14-2023 Urate [Mass/Vol] 7.1 mg/dL 3.5-7.2 [facility] Comment on above: The drugs N-Acetylcy steine and Metamizole may falsely depress this assay. Thin prep Papanicolaou smear with manual screeningOrdered By: Nadeem Alba on 12-14-2023 Protein (U) [Mass/Vol] 53.6 mg/dL 0.0-11.8 [facility] Thin prep Papanicolaou smear with manual screening 3.9 g/dL 3.2-5.0 [facility] Urine creatinine measurement (mass/volume)Ordered By: Nadeem Alba on 12-14-2023 Creatinine (U) [Mass/Vol] 333.00 mg/dL NO RANGE EST. [facility] Urine protein/creatinine mas s ratioOrdered By: Nadeem Alba on 12-14-2023 Protein/Creatinine (U) [Mass ratio] 161 mg/g CRE 0-200 [facility] No Panel InformationOrdered By: Paco Li on 09-03-2023 Prostate Specific Antigen Screen 6.25 ng/mL 0.00-4.00 [facility] Comment on above: This test was perfor med using the TPSA assay method for the[facility] Center[facility] Labs chemistry system. Values obtained with differentassay methods cannot be used interchangably.When changing PSA assays in the course of monitoring apatient, additional sequential testing should be carriedout to confirm baseline values. Basic metabolic 2000 panelon 08-26-2023 Anion gap [Moles/Vol] 14 mmol/L 10 - 20 [facility] Calcium [Mass/Vol] 10.1 mg/dL 8.4 - 10. 4 mg/dL [facility] Chloride [Moles/Vol] 103 mmol/L 97 - 11 1 mmol/L [facility] CO2 [Moles/Vol] 30 mmol/L 21 - 30 mmol/L [facility] Creatinine [Mass/Vol] 1.18 mg/dL 0.80 - 1.30 mg/dL [facility] GFR/1.73 sq M.predicted MDRD (S/P/Bld) [Vol rate/Area] 68 mL/min/{1.73_m2} - PINF [facility] Comment on above: 2020 CKD EPI Equatio n using Creatinine without Race Comment: Estimated glomerular filtration rate (eGFR) is calculated without a race coefficient. Values should be interpreted in the context of the patient's full clinical presentation. Reference: 1. Aftab C, Merritt M, Demond DC, et al.. A Unifying Approach for GFR Estimation: Recommendations of the NKF-ASN Task Force on Reassessing the Inclusion of Race in Diagnosing Kidney Disease. [place] Journal of Kidney Diseases 202;79(2):268-88.e1. 2. N Engl J Med 2020 Vol. 385 Issue 19 Pages 3974-7903 Glucose [Mass/Vol] 94 mg/dL 80 - 116 mg/dL [facility] Interpretation and review of laboratory results Normal [facility] Potassium [Moles/Vol] 3.7 mmol/L 3.3 - 5.3 mmol/L [facility] Sodium [Moles/Vol] 143 mmol/L 135 - 148 mmol/L [facility] Urea nitrogen [Mass/Vol] 15 mg/dL 8 - 22 mg/dL [facility] CBC WITH DIFFERENTIALon 11-0 -2022 Basophils (Bld) [#/Vol] 0.06 10*3/uL 0.00 - 0.20 K/uL [facility] Basophils/100 WBC (Bld) 0.7 % NINF - 1.9 % [facility] Eosinophils (Bld) [#/Vol] 0.13 10*3/uL 0.00 - 0.70 K/uL [facility] Eosinophils/100 WBC (Bld) 1.7 % 0.1 - 4.0 % [facility] Erythrocyte distribution width (RBC) [Ratio] 13.9 % 11.5 - 14.5 % [facility] Hematocrit (Bld) [Volume fraction] 46.3 % 41.0 - 53.0 % [facility] Hemoglobin (Bld) [Mass/Vol] 15.8 g/dL 13.9 - 16.3 g/dL [facility] Interpretation and review of laboratory results Abnormal [facility] Lymphocytes (Bld) [#/Vol] 1.34 10*3/uL 1.00 - 4.80 K/uL [facility] Lymphocytes/100 WBC (Bld) 17.8 % Low 24.0 - 44.0 % [facility] MCH (RBC) [Entitic mass] 29.1 pg 26.0 - 34.0 pg [facility] MCHC (RBC) [Mass/Vol] 34.2 g/dL 32.0 - 35.9 g/dL [facility] MCV (RBC) [Entitic vol] 85 fL 80 - 100 fL [facility] Monocytes (Bld) [#/Vol] 0.86 10*3/uL 0.20 - 1.00 K/uL [facility] Monocytes/100 WBC (Bld) 11.4 % High 2.0 - 11.0 % [facility] Neutrophils (Bld) [#/Vol] 5.14 10*3/uL 1.50 - 8.00 K/uL [facility] Neutrophils/100 WBC (Bld) 68.3 % 31.0 - 76.0 % [facility] Platelet mean volume (Bld) [Entitic vol] 9.8 fL 7.5 - 11.2 fL [facility] Platelets (Bld) [#/Vol] 142 10*3/uL Low 150 - 400 K/uL [facility] RBC (Bld) [#/Vol] 5.43 10*6/uL [facility] WBC (Bld) [#/Vol] 7.5 10*3/uL 4.5 - 11.5 K/uL [facility] HEPATIC FUNCTION PANELon Albumin [Mass/Vol] 4.5 g/dL 3.4 - 5.1 g/dL [facility] ALP [Catalytic activity/Vol] 55 U/L [facility] ALT [Catalytic activity/Vol] 88 U/L High [facility] AST [Catalytic activity/Vol] 44 U/L High [facility] Bilirubin [Mass/Vol] 0.8 mg/dL 0.1 - 1 .5 mg/dL [facility] Bilirubin.direct [Mass/Vol] 0.14 mg/dL 0.10 - 0.30 mg/dL [facility] Protein [Mass/Vol] 7.3 g/dL 5.7 - 8.1 g/dL [facility] LDL CHOLESTEROL, DIRECTon Cholesterol in LDL [Mass/Vol] 86 mg/dL NINF - 99 mg/dL [facility] Interpretation and review of laboratory results Normal [facility] Lipid 1996 panelon 3 Cholesterol [Mass/Vol] 191 mg/dL NINF - 200 mg/dL [facility] Cholesterol in HDL [Mass/Vol] 31 mg/dL Low 44 - PINF mg/dL [facility] Cholesterol non HDL [Mass/Vol] 160 mg/dL High NINF - 130 mg/dL [facility] Cholesterol.total/Cho lesterol in HDL [Mass ratio] 6.16 {ratio} High NINF - 5.00 [facility] Triglyceride [Mass/Vol] 555 mg/dL High NINF - 151 mg/dL [facility] LDL cannot be calcul ated due to elevated Triglyceride level. [facility] No Panel Informationon 08-26 Interpretation and review of laboratory results Abnormal [facility] PSA panelon 08-26-2023 Interpretation and review of laboratory results Abnormal [facility] Prostate specific Ag [Mass/Vol] 5.528 ng/mL High NINF - 4.000 ng/mL [facility] [employer] [place] Access DxI Total Prostate Specific Antigen (PSA) method is a sandwich chemiluminescent immunoassay. Results obtained with different test methods or kits cannot be used interchangeably. The measurement of serum PSA in conjunction with digital rectal examination (YNES) as an aid in the detection of prostate cancer in men aged 50 years or older. The [employer] Access PSA is also indicated for the serial measurement of PSA to aid in the prognosis and management of patients with prostate cancer. Elevated PSA concentrations can only suggest the presence of prostate cancer until biopsy is performed. PSA concentrations can also be elevated in benign prostatic hyperplasia or inflammatory conditions of the prostate. PSA is generally not elevated in healthy individuals or individuals with non-prostatic carcinoma. [facility] TSHon 08-26-2023 Interpretation and review of laboratory results Normal [facility] TSH Qn 1.497 m[IU]/L [facility] VITAMIN B12 (CYANOCOBALAMIN) on 08-26-2023 Cobalamin (Vitamin B12) [Moles/Vol] 319 pg/mL 300 - PINF pg/mL [facility] Interpretation and review of laboratory results Normal [facility] <152 pg/mL - Deficie nt 152 - 300 pg/mL- Insufficient >300 pg/mL - Sufficient [facility] VITAMIN D, 25-HYDROXYon 25-hydroxyvitamin D IA [Mass/Vol] 34 ng/mL 30 - 100 ng/mL [facility] Interpretation and review of laboratory results Normal [facility] Deficient : <20.0 ng /mL Insufficient : 20.0-29.9 ng/mL Sufficient : 30.0 - 100.0 ng/mL Potential Toxicity : >100.0 ng/mL [facility] Basophil percentageOrdered B y: Dr. Alba on 12-25-2022 Basophil percentage 2.2 mg/dL 2.5-4.9 [facility] Chloride [Moles/Vol] 103 mmol/L 98-107 [facility] Glucose [Mass/Vol] 114 mg/dL 74-106 [facility] Comment on above: Fasting Glucose resu lt from 100 to 125 mg/dL suggests IMPAIRED HOMEOSTASIS per A.D.A. criteria. Potassium [Moles/Vol] 3.7 mmol/L 3.5-5.1 [facility] Sodium [Moles/Vol] 140 mmol/L 136-145 [facility] WBC (Bld) [#/Vol] 5.4 10*3/uL 4.4-11.0 [facility] Blood erythrocytes count (nu mber/volume)Ordered By: Dr. Alba on 12-25-2022 RBC (Bld) [#/Vol] 5.90 10*6/uL 4.6-6.2 [facility] Blood hemoglobin measurement (mass/volume)Ordered By: Dr. Alba on 12-25-2022 Hemoglobin (Bld) [Mass/Vol] 16.4 g/dL 13.0-16.5 [facility] Blood platelet mean volumeOr dered By: Dr. Alba on 12-25-2022 Platelet mean volume (Bld) [Entitic vol] 11.2 fL 6.2-12.0 [facility] Determination of erythrocyte mean corpuscular volume (MCV)Ordered By: Dr. Alba on 12-25-2022 MCV (RBC) [Entitic vol] 86.4 fL 80-94 [facility] Hematocrit Auto (Bld) [Volum e fraction]Ordered By: Dr. Alba on 12-25-2022 Hematocrit (Bld) [Volume fraction] 51.0 % 40-54 [facility] - Chemistry and C hemistry - challengeOrdered By: Dr. Alba on 12-25-2022 CO2 [Moles/Vol] 30.0 mmol/L 21.0-32.0 [facility] Magnesium [Mass/Vol] 2.0 mg/dL 1.6-2.6 [facility] Urea nitrogen/Creatinine [Mass ratio] 12.3 mg/mg 10-20 [facility] - Hematology and Cell countsOrdered By: Dr. Alba on 12-25-2022 Erythrocyte distribution width (RBC) [Entitic vol] 40.3 fL 35.1-43.9 [facility] Erythrocyte distribution width (RBC) [Ratio] 13.1 % 11.6-14.6 [facility] MCH (RBC) [Entitic mass] 27.8 pg 27.0-32.0 [facility] MCHC Auto (RBC) [Mass/Vol]Or dered By: Dr. Alba on 12-25-2022 MCHC (RBC) [Mass/Vol] 32.2 g/dL 32-36 [facility] No Panel InformationOrdered By: Dr. Alba on 12-25-2022 Estimated GFR (MDRD) Amer 76 mL/min >60 [facility] Comment on above: GFR Calc Estimated GFR (MDRD) Non-Af Amer 63 mL/min >60 [facility] Comment on above: Non- GFR Calc Parathyroid Hormone (Intact) 39.5 pg/mL 18.4-80.1 [facility] Urine Microalbumin/Creatini ne Ratio 24.5 mg/g CRE <30 [facility] Vitamin D 25-Hydroxy 33.3 ng/mL [facility] Comment on above: Vitamin D 25(OH) Sta tus Range Deficiency <20 ng/mL (50nmol/L) Insufficiency 20 - 30 ng/mL (50 - 75 nmol/L) Sufficiency 30 - 100 ng/mL (75 - 250 nmol/L) Toxicity >100 ng/mL (>250 nmol/L) Platelets bldOrdered By: Dr. Alba on 12-25-2022 Platelets (Bld) [#/Vol] 149 10*3/uL 150-450 [facility] Serum or plasma albumin martha urement (mass/volume)Ordered By: Dr. Alba on 12-25-2022 Albumin [Mass/Vol] 3.9 g/dL 3.2-5.0 [facility] Serum or plasma calcium martha urement (mass/volume)Ordered By: Dr. Alba on 12-25-2022 Calcium [Mass/Vol] 9.4 mg/dL 8.5-10.1 [facility] Serum or plasma creatinine m easurement (mass/volume)Ordered By: Dr. Alba on 12-25-2022 Creatinine [Mass/Vol] 1.22 mg/dL 0.70-1.30 [facility] Comment on above: The validity of the calculated GFR & GFRAA in patients over 70 years has not been determined. Clinical correlation is essential. Serum or plasma urea nitroge n measurement (mass/volume)Ordered By: Dr. Alba on 12-25-2022 Urea nitrogen [Mass/Vol] 15 mg/dL 7-18 [facility] Thin prep Papanicolaou smear with manual screeningOrdered By: Dr. Alba on 12-25-2022 Thin prep Papanicolaou smear with manual screening 28.9 mg/L NO RANGE EST. [facility] Urine creatinine measurement (mass/volume)Ordered By: Dr. Alba on 12-25-2022 Creatinine (U) [Mass/Vol] 118.00 mg/dL NO RANGE EST. [facility] No Panel Informationon 08-24 Prostate Specific Antigen Total 5.73 ng/mL 0.0-4.0 [facility] Work Phone: Comment on above: This test was perfor med using the TPSA assay method for the[employer] chemistry system. Values obtained with differentassay methods cannot be used interchangably.When changing PSA assays in the course of monitoring apatient, additional sequential testing should be carriedout to confirm baseline values. PSA, Diagnosticon 07-26-2019 PSA, Diagnostic 3.86 ng/mL High 0.00-2.59 [facility] Comment on above: Performed By: #### P SA #### [facility] Routine Lab [address] [id number] US RETROPERITONEAL COMPLETEo n 07-26-2019 Patient Name: TOM KOO ---Ultrasound--- Exam Date/Time 07/26/2019 10:30:38 EDT Exam US Retroperitoneal Complete Ordering Physician MD LI DAVID S Accession Number [id number] CPT4 Codes 01154 () Reason For Exam renal cyst Report Examination: Renal ultrasound Clinical Indication: renal cyst Comparison: 05/25/2018 Findings: Multiplanar grayscale sonographic images were obtained through the kidneys and bladder. The right kidney measures 11.6 x 6.4 x 6.3 cm. Cyst within the lateral mid right kidney measures 0.7 x 1.0 x 1.2 cm, simple in appearance. The left kidney measures 12.6 x 6.2 x 6.3 cm. Left kidney contains a cyst superior medially which is bilobed. No significant nodularity or sizable septation. No shadowing calculus. This measures 5.4 x 2.3 x 3.6 cm. There is no gross renal parenchymal lesion, hydronephrosis, or shadowing renal calculus. Kidneys demonstrate grossly normal echotexture. Ultrasound images through the bladder demonstrate no gross evidence of bladder wall thickening. Impression: Bilateral renal cysts. The cyst within the left upper pole is slightly lobular and continues to mildly enlarged now measuring up to 5.4 cm. No ultrasound evidence of suspicious features. Report Dictated on Workstation: [id number] --- Final --- Dictated: 07/26/2019 10:45 am Dictating Physician: MD BORGES ANTHONY J Signed Date and Time: 07/26/2019 10:52 am Signed by: MD BORGES ANTHONY J Transcribed Date and Time: 07/26/2019 10:45 [facility], [place] [facility] Incoming Radiology Results From [facility] - 07/26/2019 10:55 AM EDT Patient Name: TOM TEJEDA ---Ultrasound--- Exam Date/Time 07/26/2019 10:30:38 EDT Exam US Retroperitoneal Complete Ordering Physician MD LI DAVID S Accession Number [id number] CPT4 Codes 60399 () Reason For Exam renal cyst Report Examination: Renal ultrasound Clinical Indication: renal cyst Comparison: 05/25/2018 Findings: Multiplanar grayscale sonographic images were obtained through the kidneys and bladder. The right kidney measures 11.6 x 6.4 x 6.3 cm. Cyst within the lateral mid right kidney measures 0.7 x 1.0 x 1.2 cm, simple in appearance. The left kidney measures 12.6 x 6.2 x 6.3 cm. Left kidney contains a cyst superior medially which is bilobed. No significant nodularity or sizable septation. No shadowing calculus. This measures 5.4 x 2.3 x 3.6 cm. There is no gross renal parenchymal lesion, hydronephrosis, or shadowing renal calculus. Kidneys demonstrate grossly normal echotexture. Ultrasound images through the bladder demonstrate no gross evidence of bladder wall thickening. Impression: Bilateral renal cysts. The cyst within the left upper pole is slightly lobular and continues to mildly enlarged now measuring up to 5.4 cm. No ultrasound evidence of suspicious features. Report Dictated on Workstation: [id number] --- Final --- Dictated: 07/26/2019 10:45 am Dictating Physician: MD BORGES ANTHONY J Signed Date and Time: 07/26/2019 10:52 am Signed by: MD BORGES ANTHONY J Transcribed Date and Time: 07/26/2019 10:45 [place], [place] US Retroperitoneal Completeo n 07-26-2019 US Retroperitoneal Complete Patient Name: TOM TEJEDA Ultrasound Exam Date/Time 07/26/2019 10:30:38 EDT Exam US Retroperitoneal Complete Ordering Physician MD LI DAVID S Accession Number [id number] CPT4 Codes [id number] () Reason For Exam renal cyst Report Examination: Renal ultrasound Clinical Indication: renal cyst Comparison: 05/25/2018 Findings: Multiplanar grayscale sonographic images were obtained through the kidneys and bladder. The right kidney measures 11.6 x 6.4 x 6.3 cm. Cyst within the lateral mid right kidney measures 0.7 x 1.0 x 1.2 cm, simple in appearance. The left kidney measures 12.6 x 6.2 x 6.3 cm. Left kidney contains a cyst superior medially which is bilobed. No significant nodularity or sizable septation. No shadowing calculus. This measures 5.4 x 2.3 x 3.6 cm. There is no gross renal parenchymal lesion, hydronephrosis, or shadowing renal calculus. Kidneys demonstrate grossly normal echotexture. Ultrasound images through the bladder demonstrate no gross evidence of bladder wall thickening. Impression: Bilateral renal cysts. The cyst within the left upper pole is slightly lobular and continues to mildly enlarged now measuring up to 5.4 cm. No ultrasound evidence of suspicious features. Report Dictated on Workstation: [id number] Final Dictated: 07/26/2019 10:45 am Dictating Physician: MD BORGES ANTHONY J Signed Date and Time: 07/26/2019 10:52 am Signed by: MD BORGES ANTHONY J Transcribed Date and Time: 07/26/2019 10:45 Normal [facility] Albumin/Creat Ratioon 2018 Albumin Urine Random <12.0 Normal 0.0-23.0 [facility] Reference Lab Comment on above: Performed By: #### P THI, MG1, RFP, URIC, VITD, CBC, UACR #### [facility] Routine Lab [address] [place], [place] [address] Albumin/Creat Ratio NCAL Normal 0-30 [facility] Reference Lab Comment on above: Performed By: #### P THI, MG1, RFP, URIC, VITD, CBC, UACR #### [facility] Routine Lab [address] [place], [place] [address] Creatinine,Urine,Ran 171.4 mg/dL Normal 20-300 [facility] Reference Lab Comment on above: Performed By: #### P THI, MG1, RFP, URIC, VITD, CBC, UACR #### [facility] Routine Lab [address] [place], [place] [address] CBCon 08-06-2019 Absolute nRBC <0.01 Normal <0.01 [facility] Reference Lab Comment on above: Performed By: #### P THI, MG1, RFP, URIC, VITD, CBC, UACR #### [facility] Routine Lab [address] [place] [phone] Erythrocyte distribution width (RBC) [Ratio] 12.8 % Normal 11.5-15.0 [facility] Reference Lab Comment on above: Performed By: #### P THI, MG1, RFP, URIC, VITD, CBC, UACR #### [facility] Routine Lab [address] [place] [address] Hematocrit (Bld) [Volume fraction] 43.0 % Normal 39.0-51.0 [facility] Reference Lab Comment on above: Performed By: #### P THI, MG1, RFP, URIC, VITD, CBC, UACR #### [facility] Routine Lab [address] [place] [phone] Hemoglobin (Bld) [Mass/Vol] 14.3 g/dL Normal 13.0-17.0 [facility] Reference Lab Comment on above: Performed By: #### P THI, MG1, RFP, URIC, VITD, CBC, UACR #### [facility] Routine Lab [address] [place] [address] MCH (RBC) [Entitic mass] 28.4 pG Normal 26.0-34.0 [facility] Reference Lab Comment on above: Performed By: #### P THI, MG1, RFP, URIC, VITD, CBC, UACR #### [facility] Routine Lab [address] [place] [address] MCHC (RBC) [Mass/Vol] 33.3 g/dL Normal 30.5-36.0 [facility] Reference Lab Comment on above: Performed By: #### P THI, MG1, RFP, URIC, VITD, CBC, UACR #### [facility] Routine Lab [address] [place] [address] MCV (RBC) [Entitic vol] 85.5 fL Normal 80.0-100.0 [facility] Reference Lab Comment on above: Performed By: #### P THI, MG1, RFP, URIC, VITD, CBC, UACR #### [facility] Routine Lab [address] [place] [address] Platelet mean volume (Bld) [Entitic vol] 12.0 fL Normal 9.0-12.7 [facility] Reference Lab Comment on above: Performed By: #### P THI, MG1, RFP, URIC, VITD, CBC, UACR #### [facility] Routine Lab [address] [place] [address] Platelets (Bld) [#/Vol] 148 10*3/uL Low 150-400 [facility] Reference Lab Comment on above: Performed By: #### P THI, MG1, RFP, URIC, VITD, CBC, UACR #### [facility] Routine Lab [address] [place] [address] RBC (Bld) [#/Vol] 5.03 10*6/uL Normal 4.20-6.00 [facility] Reference Lab Comment on above: Performed By: #### P THI, MG1, RFP, URIC, VITD, CBC, UACR #### [facility] Routine Lab [address] [place] [address] WBC (Bld) [#/Vol] 5.16 10*3/uL Normal 3.70-11.00 [facility] Reference Lab Comment on above: Performed By: #### P THI, MG1, RFP, URIC, VITD, CBC, UACR #### [facility] Routine Lab [facility] [place] [address] Magnesiumon 05-30-2019 Magnesium [Mass/Vol] 1.9 mg/dL Normal 1.7-2.3 [facility] Reference Lab Comment on above: Performed By: #### P THI, MG1, RFP, URIC, VITD, CBC, UACR #### [facility] Routine Lab [address] [place], [place] [address] PTH, Intacton 05-30-2019 PTH, Intact 24 pg/mL Normal 15-65 [facility] Reference Lab Comment on above: Performed By: #### P THI, MG1, RFP, URIC, VITD, CBC, UACR #### [facility] Routine Lab [address] [place] [address] Renal Function Panelon 05-30 Albumin [Mass/Vol] 4.6 g/dL Normal 3.9-4.9 [facility] Reference Lab Comment on above: Performed By: #### P THI, MG1, RFP, URIC, VITD, CBC, UACR #### [facility] Routine Lab [address] [place] [address] Anion gap [Moles/Vol] 12 mmol/L Normal 9-18 [facility] Lab Comment on above: Performed By: #### P THI, MG1, RFP, URIC, VITD, CBC, UACR #### [facility] Routine Lab [address] [place] [address] Calcium [Mass/Vol] 9.4 mg/dL Normal 8.5-10.2 [facility] Reference Lab Comment on above: Performed By: #### P THI, MG1, RFP, URIC, VITD, CBC, UACR #### [facility] Routine Lab [address] [place] [address] Chloride [Moles/Vol] 105 mmol/L Normal 97-105 [facility] Reference Lab Comment on above: Performed By: #### P THI, MG1, RFP, URIC, VITD, CBC, UACR #### [facility] Routine Lab [address] [place] [address] CO2 [Moles/Vol] 24 mmol/L Normal 22-30 [facility] Reference Lab Comment on above: Performed By: #### P THI, MG1, RFP, URIC, VITD, CBC, UACR #### [facility] Routine Lab [address] [place], [place] [address] Creatinine [Mass/Vol] 1.34 mg/dL High 0.73-1.22 [facility] Reference Lab Comment on above: Performed By: #### P THI, MG1, RFP, URIC, VITD, CBC, UACR #### [facility] Routine Lab [address] [place], [place] [address] eGFR- Amer. >60 Normal [facility] Reference Lab Comment on above: Performed By: #### P THI, MG1, RFP, URIC, VITD, CBC, UACR #### [facility] Routine Lab [address] [place] [address] GFR/1.73 sq M predicted among non-blacks MDRD (S/P/Bld) [Vol rate/Area] 54 . Normal [facility] Reference Lab Comment on above: Performed By: #### P THI, MG1, RFP, URIC, VITD, CBC, UACR #### [facility] Routine Lab [address] [place] [phone] Glucose [Mass/Vol] 116 mg/dL High 74-99 [facility] Reference Lab Comment on above: Performed By: #### P THI, MG1, RFP, URIC, VITD, CBC, UACR #### [facility] Routine Lab [address] [place], [place] [address] Phosphate [Mass/Vol] 2.4 mg/dL Low 2.7-4.8 [facility] Reference Lab Comment on above: Performed By: #### P THI, MG1, RFP, URIC, VITD, CBC, UACR #### [facility] Routine Lab [address] [place] [address] Potassium [Moles/Vol] 3.6 mmol/L Low 3.7-5.1 [facility] Reference Lab Comment on above: Performed By: #### P THI, MG1, RFP, URIC, VITD, CBC, UACR #### [facility] Routine Lab [address] [place], [place] [address] Sodium [Moles/Vol] 141 mmol/L Normal 136-144 [facility] Reference Lab Comment on above: Performed By: #### P THI, MG1, RFP, URIC, VITD, CBC, UACR #### [facility] Routine Lab [address] [place], [place] [address] Urea nitrogen [Mass/Vol] 20 mg/dL Normal 9-24 [facility] Reference Lab Comment on above: Performed By: #### P THI, MG1, RFP, URIC, VITD, CBC, UACR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 Never smoker [place], [place] Start: 10-10-2018 End: 08-09-2025 Alcohol intake No [place], [place] Start: 1955 Sex Assigned At Not on file [place] Start: 1955 Sex Assigned At Male [facility] Start: 10-21-2020 End: 02-04-2024 Tobacco use and exposure Smokeless tobacco non-user [facility] Start: 08-26-2023 End: 08-09-2025 History of Social function [facility] Adolescent depressio n screening assessment 0 [facility] Start: 10-10-2020 End: 01-04-2025 Sex Male (finding) [facility] Tobacco smoking stat us NHIS Unknown if ever smoked [facility] Work Phone: Goals Date Patient Goal Desired Activity /State Personal health goal Clinical Notes 08-31-2022 to 08-30-2025 Telephone Encounter - Denise Sesay - 08/30/2025 1:49 PM ESTTelephone Encounter - Denise Sesay - 08/30/2025 1:49 PM ESTTelephone Encounter - Emily Toscano MA - 08/21/2025 7:35 AM EDT Note Date & Type Note Facility 08-30-2025 Telephone encounter Note Patient returned clinic call. Informed of message per notes below. Patient verbalized understanding and voiced no further questions. Pt is requesting to stop receiving messages about outstanding lab orders [facility] 08-30-2025 Miscellaneous Notes Patient returned clinic call. Informed of message per notes below. Patient verbalized understanding and voiced no further questions. Pt is requesting to stop receiving messages about outstanding lab orders Received fax of lab results from [facility]. Scanned into media. documented in this encounter [facility] 08-21-2025 Telephone encounter Note Received fax of lab results from [facility]. Scanned into media. [facility] 08-09-2025 Evaluation + Plan note Associated Problem(s): Essential hypertension [facility] 08-09-2025 Evaluation + Plan note Associated Problem(s): Idiopathic chronic gout of multiple sites without tophus [facility] 08-09-2025 Evaluation + Plan note Associated Problem(s): Prediabetes Orders: HEMOGLOBIN A1C EXTERNAL SERVICE REQUEST FOR CARE OUTSIDE [facility] 08-09-2025 Evaluation + Plan note Associated Problem(s): Encounter for long-term (current) use of medications Orders: HEPATIC FUNCTION PANEL BASIC METABOLIC PANEL COMPLETE BLOOD COUNT W/DIFF VITAMIN B12 (CYANOCOBALAMIN) EXTERNAL SERVICE REQUEST FOR CARE OUTSIDE [facility] 08-09-2025 Evaluation + Plan note Associated Problem(s): Renal cell cancer (HCC) [facility] 08-09-2025 Evaluation + Plan note Associated Problem(s): Hypercholesteremia Orders: FULL LIPID PROFILE TSH EXTERNAL [facility] 08-09-2025 Miscellaneous Notes Associated Problem(s): Essential hypertension Associated Problem(s): Idiopathic chronic gout of multiple sites without tophus Associated Problem(s): Prediabetes Orders: HEMOGLOBIN A1C EXTERNAL SERVICE REQUEST FOR CARE OUTSIDE [facility] Associated Problem(s): Encounter for long-term (current) use of medications Orders: HEPATIC FUNCTION PANEL BASIC METABOLIC PANEL COMPLETE BLOOD COUNT W/DIFF VITAMIN B12 (CYANOCOBALAMIN) EXTERNAL SERVICE REQUEST FOR CARE OUTSIDE [facility] Associated Problem(s): Renal cell cancer (HCC) Associated Problem(s): Hypercholesteremia Orders: FULL LIPID PROFILE TSH EXTERNAL SERVICE [facility] documented in this encounter [facility] 08-09-2025 Instructions Charles Mcknight MD - 08/09/2025 3:15 PM EDT Personalized Preventive Plan for Tom Tejeda - 08/09/2025 - A preventive eye exam performed by an loss mitigation specialist is recommended every 1-2 years to screen for glaucoma, cataracts, macular degeneration, and other eye disorders - A preventive dental visit is recommended every 6 months - Try to get at least 150 minutes of exercise per week or 10,000 steps per day on a pedometer - Order FREE booklet Get Fit For Life: Exercise & Physical Activity for Healthy Aging from [employer] on Agin9-416-732-0177 or https://order.jyotsna.nih.gov/public ation/ecp-lpe-rxz-life-exercise- mthhxfei-fgpwkqxa-xep-healthy-ag ing - You need 3389-1408 mg of calcium and 3801-5956 IU of vitamin D per day - it is possible to meet your calcium requirement with diet alone, but a vitamin D supplement is usually necessary to meet this goal - When exposed to sun, use a sunscreen that protects against both UVA and UVB radiation with an SPF of 30 or greater - reapply every 2 to 3 hours or after sweating, drying off with a towel, or swimming - Always wear a seat belt when traveling in a car, and a helmet when riding a bicycle or motorcycle documented in this encounter [facility] 08-09-2025 History of Present illness Narrative ANNUAL WELLNESS VISIT Subjective Mr. Tejeda is a 70 year old who is being seen for his Annual Wellness Visit. I have reviewed and updated the following information (Care Team, Medical History, Surgical History, Family History, Social History and current medications including [id number] medications and supplements): Patient Care Team: Charles Mcknight MD as PCP - General (Family Medicine) Medical History[1], Surgical History[2], Family History[3], Social History[4], Medications Ordered Prior to Encounter[5] I have reviewed the following additional information for Mr. Tejeda. Falls Risk Screen Falls Risk Screen Fall History (past 12 months): No Fallen with Injury?: No Problems with Walking or Balance?: No Adult Falls Screen Ambulates?: Yes Dizziness/Falls in the past 12 months?: (!) Dizziness Injured? Describe the injury.: No Unsteady/Shuffling gait?: No Assistive device (e.g. cane, walker, etc.)?: No Vision changes?: No PHQ Depression Screen PHQ-9 Depression Screen (over the last 2 weeks...) Decreased Interest / Pleasure?: Not at all Down / Depressed / Hopeless?: Not at all PHQ-2 Total: 0 PHQ2 Interpretation: Screening is Negative Hearing Screen Hearing Screen Have you noticed any changes with your hearing? : No Vision Screen Vision Screen Have you noticed any changes with your vision? : No Advance Directives Advance Directives Advance Directives?: Yes - paper copy not with patient Type of Advance Directive: Living Will Mini COG Mini-Cog Copyright Elise Ramires (used by permission of the author) Remember FIRST word?: Yes Remember SECOND word?: (!) No Remember THIRD word?: Yes Clock Diagram correct?: Yes Mini COG Total Score: 4 Health Risk Assessment Health Risk Assessment Flowsheet Row Patient response During the past four weeks, how much have you been bothered by emotional problems such as feeling anxious, depressed, irritable, sad, or downhearted and blue? Not at all at 08/09/20251446 During the past four weeks, has your physical and emotional health limited your social activities with family, friends, neighbors, or groups? Not at all at 08/09/20251446 During the past four weeks, how much bodily pain have you generally had? Mild at 08/09/20251446 During the past four weeks, was someone available to help you if you needed and wanted help? Yes, as much as I want at 08/09/20251446 During the past four weeks, what was the hardest physical activity you could do for at least two minutes? Heavy at 08/09/20251446 Can you get to places out of walking distance without help? Y at 08/09/20251446 Can you go shopping for groceries or clothes without someone s help? Y at 08/09/20251446 Can you prepare your own meals? Y at 08/09/20251446 Can you do your housework without help? Y at 08/09/20251446 Because of any health problems, do you need the help of another person with your personal care needs? N at 08/09/20251446 Can you handle your own money without help? Y at 08/09/20251446 During the past four weeks, how would you rate your health in general? Good at 08/09/20251446 How have things been going for you during the past four weeks? Pretty well at 08/09/20251446 Are you having difficulties driving your car? No at 08/09/20251446 Do you fasten your seatbelt when you are in a car? Always at 08/09/20251446 Falling or feeling dizzy when standing up? (past 4 weeks) Seldom at 08/09/20251446 Sexual problems? (past 4 weeks) Never at 08/09/20251446 Trouble eating well? (past 4 weeks) Never at 08/09/20251446 Tooth or denture problems? (past 4 weeks) Never at 08/09/20251446 Problems using the telephone? (past 4 weeks) Never at 08/09/20251446 Tiredness or fatigue? (past 4 weeks) Sometimes at 08/09/20251446 Do you exercise for about 20 minutes three or more days a week? Yes, some of the time at 08/09/20251446 Have you been given any information to help you with hazards in your house that might hurt you? N at 08/09/20251446 Have you been given any information to help you with keeping track of your medications? N at 08/09/20251446 How often do you have trouble taking medicines the way you have been told to take them? I always take them as prescribed at 08/09/20251446 How confident are you that you can control and manage most of your health problems? Somewhat confident at 08/09/20251446 Objective BP 134/84 Pulse 78 Temp 97.9 F (36.6 C) Resp 16 Ht 5' 11 (1.803 m) Wt 233 lb 12.8 oz (106.1 kg) SpO2 96% BMI 32.61 kg/m [facility] Assessment & Plan Medicare annual wellness visit, subsequent Essential hypertension Idiopathic chronic gout of multiple sites without tophus Prediabetes Orders: HEMOGLOBIN A1C EXTERNAL SERVICE REQUEST FOR CARE OUTSIDE [facility] Encounter for long-term (current) use of medications Orders: HEPATIC FUNCTION PANEL BASIC METABOLIC PANEL COMPLETE BLOOD COUNT W/DIFF VITAMIN B12 (CYANOCOBALAMIN) EXTERNAL SERVICE REQUEST FOR [facility] Benign prostatic hyperplasia, unspecified whether lower urinary tract symptoms present Orders: PROSTATE SPECIFIC ANTIGEN (PSA) EXTERNAL SERVICE REQUEST FOR CARE OUTSIDE [facility] Renal cell carcinoma, unspecified laterality (HCC) Hypercholesteremia Orders: FULL LIPID PROFILE TSH EXTERNAL SERVICE REQUEST [facility] Vitamin D deficiency Orders: VITAMIN D, 25-HYDROXY EXTERNAL SERVICE REQUEST FOR CARE OUTSIDE [facility] Additional concerns: labs [1] History reviewed. No pertinent past medical history. [2] History reviewed. No pertinent surgical history. [3] No family history on file. [4] Social History Socioeconomic History Marital status: Tobacco Use Smoking status: Never Smokeless tobacco: Never [5] Current Outpatient Medications on File Prior to Visit Medication Sig Dispense Refill allopurinol (ZYLOPRIM) 300 MG tablet Take 1 Tablet by mouth daily. 90 Tablet 3 losartan-hydrochlorothiazide (HYZAAR) 100-25 MG per tablet TAKE 1 TABLET BY MOUTH DAILY 90 Tablet 3 finasteride (PROSCAR) 5 MG tablet TAKE 1 TABLET BY MOUTH DAILY 90 Tablet 3 metoprolol (TOPROL-XL) 25 mg XL tablet TAKE 1 TABLET BY MOUTH DAILY 90 Tablet 3 amLODIPine (NORVASC) 10 MG tablet TAKE 1 TABLET BY MOUTH EVERY OTHER DAY 90 Tablet 3 niacin (NIASPAN) 1000 MG CR tablet Take 1,000 mg by mouth at bedtime. Cholecalciferol (D 2000 ORAL) Take by mouth. [place]-3 Fatty Acids (FISH OIL ORAL) Take 4,000 mg by mouth. Saw [place]-Phytosterols (PROSTATE SR ORAL) Take by mouth. No current facility-administered medications on file prior to visit. documented in this encounter [facility] 07-19-2025 Note HNO ID: [id number] Author: BROOKLYN WOODS APRN.GROUP [employer] DEPARTMENT HEAD Service: ? Author Type: Nurse Practitioner Type: Progress Notes Filed: 07/20/2025 09:19 Note Text: [facility] Review of Records Patient: Tom Tejeda Address: [address] [place] [id number] Impression: Review of records for Tom Tejeda, a 70 year old male, being referred by Self to Any Epileptologist for further evaluation and treatment. Patient has previously diagnosed seizures. EEG and MRI reports are not available. Patient has trialed 1 AED. Since he reports > 1 year since his last episode, would start with a routine EEG and consultation with an Epileptologist. Summary: Onset: Recent Seizure Frequency: Has not had an episode in over a year Seizure Description(s) Available: Type A: Has an aura followed by loss of consciousness, shaking Duration: A few minutes Current AED(s): Valproic acid Previous AED(s): None PMH: HTN, hyperlipidemia, DVT/PE (2016), PRIOR EVALUATIONS: [facility] [id number] [place] [id number] EEG (Patient is unsure): MRI brain wo/w contrast (-): FELI Recommendations: - Routine EEG, consult with an Epileptologist - Additional testing to be considered by epilepsy clinicians Signed: Brooklyn Woods APRN.CNP July 19, [address] Solis for review and recommendations. --------- MD Recommendations (as discussed with Dr. Solis): - Please proceed with the above plan. [facility] 03-22-2025 Note Outreach Team ) Contact Details: Outbound call. No Answer; unable to leave message. Care Gaps Scheduling Medicare AWV / PCP Visit: Outside S Eye Exam: Outside S Mammogram: N/A Pap Smear: N/A Health Maintenance (First 20 Items*) Topic Status Date Due Order 1 Colonoscopy Not Due 10/06/2026 2 Cholesterol Not Due 08/26/2028 3 Fit Overdue 2001 4 Hemoglobin A1c Overdue 08/26/2024 5 Hepatitis C Antibody Discontinued N/A 6 Basic Metabolic Panel Due On 02/03/2025 7 Hepatitis A (Hav) Vaccine Completed N/A 8 Hepatitis B (Hbv) Vaccine Completed N/A 9 Tdap Booster Completed N/A 10 Tetanus (Td Or Tdap) Booster Overdue 10/23/2021 11 Annual Wellness Visit (G0439) Overdue 08/25/2024 12 Shingles (Rzv) Vaccine Overdue 12/18/2016 13 Pneumococcal Vaccine(S) (50+ Yrs) Completed N/A 14 Cologuard (Stool Dna) Overdue 2001 15 Rsv Vaccine (Adult) Not Due 2031 16 Prostate Cancer Screening (Shared Decision Making) Not Due 11/28/2025 17 Covid-19 Vaccine Overdue 06/25/2024 18 Crc Screening Not Due 10/06/2026 19 Crc Screening Not Due 10/06/2026 20 Crc Screening Not Due 10/06/2026 *Last item repeats if fewer than 20 items are present in Health Maintenance Recent Visits Dept. Specialty Last Visit Details 1 Primary Care Most recent visit in Family Practice, Medicine/Pediatrics, Internal Medicine or Gerontology was on 02/04/2024 with Donald Flowers MD 2 Eye no prior visits in Ophthalmology or Optometry 3 Mammogram Last Mammogram date (10 year lookback): Not Found 4 Pap Smear Last Pap Smear date (10 year lookback): Not Found [facility] 03-22-2025 Telephone encounter Note Outreach Team ([phone]) Contact Details: Outbound call. No Answer; unable to leave message. Care Gaps Scheduling Medicare AWV / PCP Visit: Outside S Eye Exam: Outside S Mammogram: N/A Pap Smear: N/A Health Maintenance (First 20 Items*) Topic Status Date Due Order 1 Colonoscopy Not Due 10/06/2026 2 Cholesterol Not Due 08/26/2028 3 Fit Overdue 2001 4 Hemoglobin A1c Overdue 08/26/2024 5 Hepatitis C Antibody Discontinued N/A 6 Basic Metabolic Panel Due On 02/03/2025 7 Hepatitis A (Hav) Vaccine Completed N/A 8 Hepatitis B (Hbv) Vaccine Completed N/A 9 Tdap Booster Completed N/A 10 Tetanus (Td Or Tdap) Booster Overdue 10/23/2021 11 Annual Wellness Visit (G0439) Overdue 08/25/2024 12 Shingles (Rzv) Vaccine Overdue 12/18/2016 13 Pneumococcal Vaccine(S) (50+ Yrs) Completed N/A 14 Cologuard (Stool Dna) Overdue 2001 15 Rsv Vaccine (Adult) Not Due 2031 16 Prostate Cancer Screening (Shared Decision Making) Not Due 11/28/2025 17 Covid-19 Vaccine Overdue 06/25/2024 18 Crc Screening Not Due 10/06/2026 19 Crc Screening Not Due 10/06/2026 20 Crc Screening Not Due 10/06/2026 *Last item repeats if fewer than 20 items are present in Health Maintenance Recent Visits Dept. Specialty Last Visit Details 1 Primary Care Most recent visit in Family Practice, Medicine/Pediatrics, Internal Medicine or Gerontology was on 02/04/2024 with Donald Flowers MD 2 Eye no prior visits in Ophthalmology or Optometry 3 Mammogram Last Mammogram date (10 year lookback): Not Found 4 Pap Smear Last Pap Smear date (10 year lookback): Not Found [facility] 03-22-2025 Miscellaneous Notes Outreach Team ([phone]) Contact Details: Outbound call. No Answer; unable to leave message. Care Gaps Scheduling Medicare AWV / PCP Visit: Outside [facility] Eye Exam: Outside [facility] Mammogram: N/A Pap Smear: N/A Health Maintenance (First 20 Items*) Topic Status Date Due Order 1 Colonoscopy Not Due 10/06/2026 2 Cholesterol Not Due 08/26/2028 3 Fit Overdue 2001 4 Hemoglobin A1c Overdue 08/26/2024 5 Hepatitis C Antibody Discontinued N/A 6 Basic Metabolic Panel Due On 02/03/2025 7 Hepatitis A (Hav) Vaccine Completed N/A 8 Hepatitis B (Hbv) Vaccine Completed N/A 9 Tdap Booster Completed N/A 10 Tetanus (Td Or Tdap) Booster Overdue 10/23/2021 11 Annual Wellness Visit (G0439) Overdue 08/25/2024 12 Shingles (Rzv) Vaccine Overdue 12/18/2016 13 Pneumococcal Vaccine(S) (50+ Yrs) Completed N/A 14 Cologuard (Stool Dna) Overdue 2001 15 Rsv Vaccine (Adult) Not Due 2031 16 Prostate Cancer Screening (Shared Decision Making) Not Due 11/28/2025 17 Covid-19 Vaccine Overdue 06/25/2024 18 Crc Screening Not Due 10/06/2026 19 Crc Screening Not Due 10/06/2026 20 Crc Screening Not Due 10/06/2026 *Last item repeats if fewer than 20 items are present in Health Maintenance Recent Visits Dept. Specialty Last Visit Details 1 Primary Care Most recent visit in Family Practice, Medicine/Pediatrics, Internal Medicine or Gerontology was on 02/04/2024 with Donald Flowers MD 2 Eye no prior visits in Ophthalmology or Optometry 3 Mammogram Last Mammogram date (10 year lookback): Not Found 4 Pap Smear Last Pap Smear date (10 year lookback): Not Found documented in this encounter [facility] 12-01-2024 Telephone encounter Note Patient was identified by name and date of . Emily Toscano MA Spoke with pt and advised that we received test results for PSA from [facility]. Advised the results were high. Pt has an appointment on Wednesday morning at [facility]. Pt does not have MyChart to give him results. Advised will fax results to Dr. Riggins. Pt verbalized an understanding. Faxed successfully. Scanned into media. [facility] 12-01-2024 Miscellaneous Notes Patient was identified by name and date of . Emily Toscano MA Spoke with pt and advised that we received test results for PSA from [facility]. Advised the results were high. Pt has an appointment on Wednesday at [facility]. Pt does not have MyChart to give him results. Advised will fax results to Dr. Riggins. Pt verbalized an understanding. Faxed successfully. Scanned into media. Received fax from [facility], Department of Laboratories. Scanned into media. Routing to provider for review. Lab result shows PSA, Diagnostic, 10.8. documented in this encounter [facility] 11-29-2024 Telephone encounter Note Received fax from [facility], Department of Laboratories. Scanned into media. Routing to provider for review. Lab result shows PSA, Diagnostic, 10.8. [facility] 03-10-2024 Telephone encounter Note Addressed in other encounter. [facility] 03-10-2024 Miscellaneous Notes Addressed in other encounter. Situation: Pt calling in regards to text Background: Pt states he received a text that a provider placed a referral order for ultrasound. He does not know why? His foot pain is slightly better, but not significant, still hobbling around because of the pain. Assessment: please assist Recommendation: Phone numbers Thank You documented in this encounter [facility] 03-10-2024 Telephone encounter Note Patient was identified by name, date of , and phone number Message given to patient. Verbalized understanding, no further questions. Pt is driving he will call back to schedule lab visit and ultrasound and video visit. [facility] 03-10-2024 Miscellaneous Notes Patient was identified by name, date of , and phone number Message given to patient. Verbalized understanding, no further questions. Pt is driving he will call back to schedule lab visit and ultrasound and video visit. Full results are available on Dappert and copy below US ordered Next labs this or next week and appt w pcp = Nursing staff to call / see phn msg Encourage pt to activate Infrafonehart/ text sent See General explanation below The following were out of range Glucose 150 -any glucose over 100 is concerning for PREDiabetes -diabetes is diagnosed if FASTING glucose >126 Or NONfasting >140 Liver enzymes: ALT 100, AST 47: both moderately elevated; not new: worse than before stop/avoid all alcohol and Tylenol/acetaminophen products. Past US: Repeat labs next week and appt to discuss : can be virtual video appt : w PCP ~~ orders in computer:come to [facility] facility to have drawn (please schedule if you want it drawn at [facility] or [facility] offices). General lab comments: BMP basic metabolic panel includes kidney function (GFR and creatinine) and electrolytes Glucose -any glucose over 100 is concerning for PREDiabetes -diabetes is diagnosed if FASTING glucose >126 Or NONfasting >140 Hepatic panel shows liver function and proteins CBC: This show your blood counts / bone marrow functioning -WBC can be high in infection and the differential shows the breakdown of different white cells -hemoglobin and hematocrit show your red blood cell count to: If low shows anemia -platelets contribute to clotting Note: any number out of range that is NOT specifically mentioned is NOT of clinical concern. Donald Flowers MD documented in this encounter [facility] 03-02-2024 Telephone encounter Note Situation: Pt calling in regards to text Background: Pt states he received a text that a provider placed a referral order for ultrasound. He does not know why? His foot pain is slightly better, but not significant, still hobbling around because of the pain. Assessment: please assist Recommendation: Phone numbers Thank You [facility] 02-20-2024 Telephone encounter Note Full results are available on Dappert and copy below US ordered Next labs this or next week and appt w pcp = Nursing staff to call / see phn msg Encourage pt to activate Infrafonehart/ text sent See General explanation below The following were out of range Glucose 150 -any glucose over 100 is concerning for PREDiabetes -diabetes is diagnosed if FASTING glucose >126 Or NONfasting >140 Liver enzymes: ALT 100, AST 47: both moderately elevated; not new: worse than before stop/avoid all alcohol and Tylenol/acetaminophen products. Past US: Repeat labs next week and appt to discuss : can be virtual video appt : w PCP ~~ orders in computer:come to [facility] facility to have drawn (please schedule if you want it drawn at [facility] or [facility] [address] offices). General lab comments: [facility] basic metabolic panel includes kidney function (GFR and creatinine) and electrolytes Glucose -any glucose over 100 is concerning for PREDiabetes -diabetes is diagnosed if FASTING glucose >126 Or NONfasting >140 Hepatic panel shows liver function and proteins CBC: This show your blood counts / bone marrow functioning -WBC can be high in infection and the differential shows the breakdown of different white cells -hemoglobin and hematocrit show your red blood cell count to: If low shows anemia -platelets contribute to clotting Note: any number out of range that is NOT specifically mentioned is NOT of clinical concern. Donald Flowers MD [facility] 02-20-2024 Miscellaneous Notes Full results are available on Popbasic and copy below US ordered Next labs this or next week and appt w pcp = Nursing staff to call / see phn msg Encourage pt to activate Dappert/ text sent See General explanation below The following were out of range Glucose 150 -any glucose over 100 is concerning for PREDiabetes -diabetes is diagnosed if FASTING glucose >126 Or NONfasting >140 Liver enzymes: ALT 100, AST 47: both moderately elevated; not new: worse than before stop/avoid all alcohol and Tylenol/acetaminophen products. Past US: Repeat labs next week and appt to discuss : can be virtual video appt : w PCP ~~ orders in computer:come to [facility] facility to have drawn (please schedule if you want it drawn at [facility] or [facility] [address] offices). General lab comments: [facility] basic metabolic panel includes kidney function (GFR and creatinine) and electrolytes Glucose -any glucose over 100 is concerning for PREDiabetes -diabetes is diagnosed if FASTING glucose >126 Or NONfasting >140 Hepatic panel shows liver function and proteins CBC: This show your blood counts / bone marrow functioning -WBC can be high in infection and the differential shows the breakdown of different white cells -hemoglobin and hematocrit show your red blood cell count to: If low shows anemia -platelets contribute to clotting Note: any number out of range that is NOT specifically mentioned is NOT of clinical concern. Donald Flowers MD documented in this encounter [facility] 02-04-2024 History of Present illness Narrative Identity was confirmed by verifying patient name and date of . Blood drawn for patient. Blood obtained from rt arm, using 21 gauge butterfly. Patient denies discomfort, bleeding controlled, bandage applied. Site appears normal. Patient was identified by name and date of . Jazzy Bryant Images from the original note were not included. ..?/ Family Medicine ../? * * . ... . . * * . / \ Donald Flowers MD [address] [address] Chief Complaint Patient presents with Foot/toe symptoms Feet pain ~~~~~~~~~~~~~~~~~~~~~~~~~~~~~~~ Visit date: 02/04/24 Assessment and Plan and PATIENT INSTRUCTIONS FROM AVS: No follow-ups on file. Patient Instructions You have severe bilateral plantar fasciitis x5 weeks You are not able to take anti-inflammatories due to past renal insufficiency and renal cell cancer Tylenol should not be used either due to past elevation of liver enzymes: Repeat labs ordered and likely will order ultrasound to follow this up Ice and prednisone burst and taper Supportive shoes at all times: Consider heel cup Stretches and exercises Next step referral to Podiatry or ortho for injections or other Hold x-ray for now Make sure urology is aware of the rising PSA level and clarify if they want a six-month follow up which would be due in February VACCINES SAVE LIVES!!! Several vaccines are recommended: Can get together or separate by 2 weeks Priority order : based on potential for severe illness/ and community spread: Covid booster (updated/ improved) (must be done at ANY pharmacy) new RSV vaccine (if over 60 and especially if heart/lung issues) (get at pharmacy) Tdap (get at pharmacy if MEDICARE) shingles (series of 2 / get at pharmacy if MEDICARE) Health Maintenance Due Topic Date Due COVID-19 Vaccine (1) Never done Shingles (RZV) Vaccine (2 of 3) 12/18/2016 Tetanus (Td or Tdap) Booster 10/23/2021 RSV vaccine (optional 60+ years) 2016 = Due to ongoing COVID cases / new HIGHLY CONTAGIOUS variants PLEASE GET FULLY VACCINATED FOR YOURSELF FOR YOUR FAMILY FOR YOUR COMMUNITY FOR THE HEALTHCARE WORKERS Vaccines decrease incidence of severe illness, hospitalization, , long hauler syndrome and other long-term sequela Vaccines have been shown to be safe with no long-term sequela COVID is now showing to affect people long-term with regards to heart, vascular system, immune system and other: It is NOT A BENIGN DISEASE NEW 12/2023 Recommending additional COVID vaccine for 65+ WHAT IS CHANGING? The CDC recommends an additional dose of the 0214-2902 formulation of the COVID vaccine to patients who are 65+ and are 4+ months past their most recent such dose. WHY IS IT CHANGING? This is to help protect against an anticipated surge of COVID infections over the summer months. Reach out with questions and concerns Prioritize getting your COVID-19 vaccine BOOSTER or primary series CDC recommends keeping COVID-19 vaccine by 14 days from other vaccinations (unless given AT THE SAME TIME) IF you are due for other vaccines: get at the same time OR by 14 days COVID 19 Updates - NEW Vaccine Information [facility] recommends updated COVID-19 vaccine for 2741-1835 (Omicron XBB.1.5) to all patients 6+ months of age The Advisory Committee on Immunization Practices (ACIP) recommends at least one dose of an updated COVID vaccine for all patients 6+ months of age. [facility] now offers updated COVID-19 vaccines by appointment only at our 11 pharmacies. Patients can schedule through Popbasic or by calling [phone] ([phone]). These new vaccines are designed to teach the body how to fend off the current crop of circulating variants of COVID-19. Cases are on the rise in our community, and vaccines remain our strongest defense against serious illness. The Centers for Disease Control and Prevention recommends everyone ages 6 and older get at least one dose of an updated mRNA vaccine this year regardless of whether they've received any of the original COVID shots. Covid pandemic is NOT over We will continue to get more variants, spread, illness and : the following measures will help! Please do your part! MASKING: please protect yourself by continuing to mask and physical distance especially indoors Consider getting a mask that will protect you from others since many are going unmasked -- N95 or KN95 masks are ideal (cloth masks do NOT give adequate protection for you against others) And caution around others especially elderly and unvaccinated INCLUDING YOUNG CHILDREN TESTING ~~increase testing!! -when exposed -when symptomatic (test daily as needed) -when going to visit vulnerable (elderly / / infants/ immunosuppressed) -when gathering in a large group/ parties (before and perhaps after!) You can order free tests online from the [place] government or get FREE at most public libaries Contact [facility] 24 hour nurse line at [phone] as needed Covid Vaccines are available for ALL age 6 months and up No insurance needed / one does NOT need to be an established [facility] patient call [phone] to schedule Or Call [phone] to sign up at locations outside of [facility] Vaccines are the best way to speed up the end of the Covid pandemic and prevent further mutations. Vaccines are how we as a community protect each other. Vaccines prevent , severe disease and snf complications (including LONG HAULERS) Currently those in the hospital ICUs and dying are predominantly the UNVACCINATED. For those who choose to remain UNVACCINATED, consider discussing with your family what your wishes would be if you were sick enough to be intubated/ on a breathing machine. VACCINES SAVE LIVES!!! Handouts: ~~~~~~~~~~~~~~~~~~~~~~~~~~~~~~~~ HPI: Foot/toe symptoms (Feet pain) Vitals: 02/04/24 0947 BP: 147/94 Pulse: 79 Resp: 18 Temp: 98.6 F (37 C) Recent/ past labs and tests rev'd : see cc below Concerns: bilat heels: sore Wonders if PF Sudden onset Like on spikes Worse w first walking Better p several minutes X 5wk Walks barefoot Some hard floors No provoking event Some achilles tightness : walking Otc med: none Tried ball roll Distant past prostate biopsies FH high PSA No etoh / acetaminophen Past cancer : renal ca 10 yrs X covid 1 Not covid VACCINATED = Last visit: Office Visit on 08/26/2023 in [facility] with Charles Mcknight MD for Medicare annual wellness visit, subsequent; Essential hypertension; Encounter for long-term (current) use of medications; Hypercholesteremia; Idiopathic chronic gout of multiple sites without tophus; Prediabetes; Benign prostatic hyperplasia, unspecified whether lower urinary tract symptoms present; Renal cell carcinoma, unspecified laterality (HCC); Thrombocytopenia (HCC); Numbness; Vitamin D deficiency; Body mass index (BMI) 32.0-32.9, adult. no prior visits with DONALD FLOWERS OV: reviewed / relevant details noted below = Relevant past and current data reviewed/ see chart and relevant data copied below-end of note = Epic charting revd/ Care Team updated Patient Care Team: Charles Mcknight MD as PCP - General (Family Medicine) = Current Outpatient Medications on File Prior to Visit Medication Sig Dispense Refill niacin (NIASPAN) 1000 MG CR tablet Take 1,000 mg by mouth at bedtime. Cholecalciferol (D 2000 ORAL) Take by mouth. [place]-3 Fatty Acids (FISH OIL ORAL) Take 4,000 mg by mouth. Saw [place]-Phytosterols (PROSTATE SR ORAL) Take by mouth. amLODIPine (NORVASC) 10 MG tablet Take 1 Tablet by mouth every other day. 90 Tablet 3 metoprolol (TOPROL-XL) 25 mg XL tablet Take 1 Tablet by mouth daily. 90 Tablet 3 losartan-hydrochlorothiazide (HYZAAR) 100-25 MG per tablet Take 1 Tablet by mouth daily. 90 Tablet 3 finasteride (PROSCAR) 5 MG tablet Take 1 Tablet by mouth daily. 90 Tablet 3 allopurinol (ZYLOPRIM) 300 MG tablet Take 1 Tablet by mouth daily. 90 Tablet 3 No current facility-administered medications on file prior to visit. Reviewed PMH / FH/ SH Significant for: see HPI No past medical history on file. No past surgical history on file. No family history on file. Immunization History Administered Date(s) Administered Hep A-Hep B (adult) (UQV=907) 10/07/2010, 11/05/2010, 07/13/2011 Influenza, whole virus (CVX=16) 10/07/2010 Pneumococcal conjugate 20 valent (PCV20), polysaccharide CEH236 conjugate, adjuvant, PF (SOG=143) 08/25/2022 Tdap (MCF=855) 10/07/2010, 10/23/2011 Typhoid, Vi capsular polysaccharhide (ViCPS) (QBK=661) 10/07/2010 Zoster Live (ZVL,Shingles) (GYF=727) 10/23/2016 = Tom was seen today for foot/toe symptoms. Diagnoses and all orders for this visit: Bilateral plantar fasciitis Renal insufficiency Elevated LFTs - HEPATIC FUNCTION PANEL; Future - HEPATIC FUNCTION PANEL Thrombocytopenia (HCC) - COMPLETE BLOOD COUNT W/DIFF; Future - COMPLETE BLOOD COUNT W/DIFF Rising PSA level Hypertriglyceridemia Chronic gout without tophus, unspecified cause, unspecified site Renal cell carcinoma, unspecified laterality (HCC) - COMPLETE BLOOD COUNT W/DIFF; Future - BASIC METABOLIC PANEL; Future - HEPATIC FUNCTION PANEL; Future - HEPATIC FUNCTION PANEL - BASIC METABOLIC PANEL - COMPLETE BLOOD COUNT W/DIFF Vaccine counseling Stage 3a chronic kidney disease (HCC) Other orders - predniSONE (DELTASONE) 10 MG tablet; Take 4 tablets once a day by mouth x 1 d, then 3 tabs once a day x 1 days, then 2 tab x 1 d;1 tab x 1 day and 1/2 tab x 1 d PATIENT INSTRUCTIONS FROM AVS Noted at TOP of this note ROS in addition to HPI: NA Physical exam Vitals: 02/04/24 0947 BP: 147/94 Pulse: 79 Resp: 18 Temp: 98.6 F (37 C) GENERAL APPEARANCE: alert and oriented, NAD. EYES: PERRL, EOMI, no scleral icterus, conjunctiva clear. NECK/THYROID: visually WNL. RESPIRATORY: calm, unlabored SKIN: visually Normal Physical Exam Constitutional: General: He is not in acute distress. Appearance: He is not ill-appearing or toxic-appearing. HENT: Head: Normocephalic and atraumatic. Eyes: General: No scleral icterus. Conjunctiva/sclera: Conjunctivae normal. Neck: Thyroid: No thyromegaly. Cardiovascular: Rate and Rhythm: Normal rate and regular rhythm. Pulmonary: Effort: Pulmonary effort is normal. No respiratory distress. Musculoskeletal: General: Tenderness present. No swelling or deformity. Cervical back: Neck supple. No tenderness. Right lower leg: No edema. Left lower leg: No edema. Feet: Feet: Right foot: Skin integrity: Dry skin present. No ulcer, blister, skin breakdown, erythema or warmth. Left foot: Skin integrity: Dry skin present. No ulcer, blister, skin breakdown, erythema or warmth. Comments: Focal pain bilat heels No pain over lat or post heel/ achilles Lymphadenopathy: Cervical: No cervical adenopathy. Skin: General: Skin is warm and dry. Coloration: Skin is not jaundiced or pale. Findings: No erythema or rash. Neurological: Mental Status: He is alert and oriented to person, place, and time. Psychiatric: Mood and Affect: Mood and affect normal. Cognition and Memory: Memory normal. Judgment: Judgment normal. Donald Flowers MD 02/04/24 . * * . ... . . * * . ... . . * * . * * . ... . . * * . ... . . * * . Time-based billing justifications: Reviewing (chart, labs, and other clinical notes) Obtaining history (or reviewing separately obtained history) Patient visit (including performing a medically appropriate exam) Counseling/educating the patient/family/caregiver Ordering (medications, tests, procedures - including independent interpretation of results when not reported separately) Referring/communicating with other health patient care assistant - when not reported separately Charting in [facility] ~~~~~~~~~~~~~~~~~~~~~~~~~~~~~~~~ ~~~~~~~~~~~ Relevant Past Data ~~~~recent past visits/ consult :partial copy/ edited for clarity & brevity~~~~~~~~~~~~~~~~~~ Precharting [facility] chart review: past visits/ consults /labs / imaging rogress Notes Charles Mcknight MD (Physician) Family Medicine Your blood counts, kidney function, blood sugar, thyroid function and cholesterol were normal. The triglycerides were elevated so please watch carbs in the diet. The liver function tests were somewhat elevated but consistent with where they have been over the last few years. The vitamin B12 levels and vitamin-D levels were good. The PSA was 5.5 which is lower than what it was 2 years ago and higher than what was year ago so please share this information with Urology. Progress Notes Charles Mcknight MD (Physician) Family Medicine Expand All Collapse All ANNUAL WELLNESS VISIT Mr. Tejeda is a 68 year old who is being seen for his Annual Wellness Visit. 10/08/2021 8:42 AM 08/25/2022 9:48 AM 08/26/2023 1:32 PM WBC 6.8 6.7 7.5 RBC 5.65 5.47 5.43 Hemoglobin 15.8 16.0 15.8 Hematocrit 47.4 45.9 46.3 MCV 84 84 85 MCH 27.9 29.3 29.1 MCHC 33.2 34.9 34.2 Platelet 140 (L) 124 (L) 142 (L) RDW-CV% 14.7 (H) 13.8 13.9 MPV 9.4 9.7 9.8 Neutrophils 68.7 71.7 68.3 Neutrophil # 4.65 4.79 5.14 Lymphocytes 18.5 (L) 14.9 (L) 17.8 (L) Lymph Absolute 1.25 1.00 1.34 Monocytes 10.1 10.7 11.4 (H) Monocyte Absolute 0.68 0.71 0.86 Eosinophil 2.1 1.9 1.7 Eosinophil Absolute 0.14 0.13 0.13 Basophils 0.6 0.9 0.7 Basophil # 0.04 0.06 0.06 Glucose 105 113 94 Sodium 141 141 143 Potassium 4.2 3.7 3.7 Carbon Dioxide 26 28 30 Chloride 104 104 103 BUN 19 15 15 Creatinine 1.20 1.35 (H) 1.18 Calcium 9.5 9.5 10.1 Anion Gap 15 13 14 Estimated GFR 63 58 (L) 68 Cholesterol 214 (H) 198 191 Triglycerides 344 (H) 303 (H) 555 (H) HDL Cholesterol 30 (L) 28 (L) 31 (L) LDL cholesterol 140 (H) 131 (H) 86 NONHDL 184 (H) 170 (H) 160 (H) Chol/HDL Ratio 7.13 (H) 7.07 (H) 6.16 (H) LDL/HDL Ratio 4.67 (H) 4.68 (H) Albumin 4.2 4.2 4.5 Bilirubin, Direct 0.10 0.20 0.14 Bilirubin, Total 1.0 1.1 0.8 Alkaline Phosphatase 45 47 55 ALT (SGPT) 68 (H) 72 (H) 88 (H) AST (SGOT) 35 49 (H) 44 (H) Protein, Total 6.8 6.7 7.3 Hemoglobin A1c 5.7 (H) 5.5 5.5 Estimated Avg Glucose 117 111 111 PSA 3.87 5.528 (H) TSH (high sens.) 1.659 1.563 1.497 Vitamin B12 319 Vitamin D, 25-OH 34 Legend: (L) Low (H) High ~~~~~~~~~~~~~~~~~~~~~~~~~~~~~~~~ ~~~~~~~~~~~ Relevant Past Data Above /between red lines. Please review NOTE from beginning: Plan at the top. .?/ ./? ./ \ . * * . ... . . * * . Donald Flowers MD . * * . ... . . * * .. * * . ... . . * * . Donald Flowers MD Identification was verified by patient verbalizing his name and date of . documented in this encounter [facility] 02-04-2024 History of Present illness Narrative Identity was confirmed by verifying patient name and date of . Blood drawn for patient. Blood obtained from rt arm, using 21 gauge butterfly. Patient denies discomfort, bleeding controlled, bandage applied. Site appears normal. Patient was identified by name and date of . Jazzy Bryant Images from the original note were not included. ..?/ Family Medicine ../? * * . ... . . * * . / \ Donald lFowers MD [address] [address] Chief Complaint Patient presents with Foot/toe symptoms Feet pain ~~~~~~~~~~~~~~~~~~~~~~~~~~~~~~~ Visit date: 02/04/24 Assessment and Plan and PATIENT INSTRUCTIONS FROM AVS: No follow-ups on file. Patient Instructions You have severe bilateral plantar fasciitis x5 weeks You are not able to take anti-inflammatories due to past renal insufficiency and renal cell cancer Tylenol should not be used either due to past elevation of liver enzymes: Repeat labs ordered and likely will order ultrasound to follow this up Ice and prednisone burst and taper Supportive shoes at all times: Consider heel cup Stretches and exercises Next step referral to Podiatry or ortho for injections or other Hold x-ray for now Make sure urology is aware of the rising PSA level and clarify if they want a six-month follow up which would be due in February VACCINES SAVE LIVES!!! Several vaccines are recommended: Can get together or separate by 2 weeks Priority order : based on potential for severe illness/ and community spread: Covid booster (updated/ improved) (must be done at ANY pharmacy) new RSV vaccine (if over 60 and especially if heart/lung issues) (get at pharmacy) Tdap (get at pharmacy if MEDICARE) shingles (series of 2 / get at pharmacy if MEDICARE) Health Maintenance Due Topic Date Due COVID-19 Vaccine (1) Never done Shingles (RZV) Vaccine (2 of 3) 12/18/2016 Tetanus (Td or Tdap) Booster 10/23/2021 RSV vaccine (optional 60+ years) 2016 = Due to ongoing COVID cases / new HIGHLY CONTAGIOUS variants PLEASE GET FULLY VACCINATED FOR YOURSELF FOR YOUR FAMILY FOR YOUR COMMUNITY FOR THE HEALTHCARE WORKERS Vaccines decrease incidence of severe illness, hospitalization, , long hauler syndrome and other long-term sequela Vaccines have been shown to be safe with no long-term sequela COVID is now showing to affect people long-term with regards to heart, vascular system, immune system and other: It is NOT A BENIGN DISEASE NEW 12/2023 Recommending additional COVID vaccine for 65+ WHAT IS CHANGING? The CDC recommends an additional dose of the 1804-3744 formulation of the COVID vaccine to patients who are 65+ and are 4+ months past their most recent such dose. WHY IS IT CHANGING? This is to help protect against an anticipated surge of COVID infections over the summer months. Reach out with questions and concerns Prioritize getting your COVID-19 vaccine BOOSTER or primary series CDC recommends keeping COVID-19 vaccine by 14 days from other vaccinations (unless given AT THE SAME TIME) IF you are due for other vaccines: get at the same time OR by 14 days COVID 19 Updates - NEW Vaccine Information [facility] recommends updated COVID-19 vaccine for 9699-7968 (Omicron XBB.1.5) to all patients 6+ months of age The Advisory Committee on Immunization Practices (ACIP) recommends at least one dose of an updated COVID vaccine for all patients 6+ months of age. [facility] now offers updated COVID-19 vaccines by appointment only at our 11 pharmacies. Patients can schedule through [employer] or by calling [phone] ([phone]). These new vaccines are designed to teach the body how to fend off the current crop of circulating variants of COVID-19. Cases are on the rise in our community, and vaccines remain our strongest defense against serious illness. The Centers for Disease Control and Prevention recommends everyone ages 6 and older get at least one dose of an updated mRNA vaccine this year regardless of whether they've received any of the original COVID shots. Covid pandemic is NOT over We will continue to get more variants, spread, illness and : the following measures will help! Please do your part! MASKING: please protect yourself by continuing to mask and physical distance especially indoors Consider getting a mask that will protect you from others since many are going unmasked -- N95 or KN95 masks are ideal (cloth masks do NOT give adequate protection for you against others) And caution around others especially elderly and unvaccinated INCLUDING YOUNG CHILDREN TESTING ~~increase testing!! -when exposed -when symptomatic (test daily as needed) -when going to visit vulnerable (elderly / / infants/ immunosuppressed) -when gathering in a large group/ parties (before and perhaps after!) You can order free tests online from the federal government or get FREE at most public libaries Contact [facility] 24 hour nurse line at [phone] as needed Covid Vaccines are available for ALL age 6 months and up No insurance needed / one does NOT need to be an established [facility] patient call [phone] to schedule Or Call 2-1-1 to sign up at locations outside of [facility] Vaccines are the best way to speed up the end of the Covid pandemic and prevent further mutations. Vaccines are how we as a community protect each other. Vaccines prevent , severe disease and snf complications (including LONG HAULERS) Currently those in the hospital ICUs and dying are predominantly the UNVACCINATED. For those who choose to remain UNVACCINATED, consider discussing with your family what your wishes would be if you were sick enough to be intubated/ on a breathing machine. VACCINES SAVE LIVES!!! Handouts: ~~~~~~~~~~~~~~~~~~~~~~~~~~~~~~~~ HPI: Foot/toe symptoms (Feet pain) Vitals: 02/04/24 0947 BP: 147/94 Pulse: 79 Resp: 18 Temp: 98.6 F (37 C) Recent/ past labs and tests rev'd : see cc below Concerns: bilat heels: sore Wonders if PF Sudden onset Like on spikes Worse w first walking Better p several minutes X 5wk Walks barefoot Some hard floors No provoking event Some achilles tightness : walking Otc med: none Tried ball roll Distant past prostate biopsies FH high PSA No etoh / acetaminophen Past cancer : renal ca 10 yrs X covid 1 Not covid VACCINATED = Last visit: Office Visit on 08/26/2023 in [facility] with Charles Mcknight MD for Medicare annual wellness visit, subsequent; Essential hypertension; Encounter for long-term (current) use of medications; Hypercholesteremia; Idiopathic chronic gout of multiple sites without tophus; Prediabetes; Benign prostatic hyperplasia, unspecified whether lower urinary tract symptoms present; Renal cell carcinoma, unspecified laterality (HCC); Thrombocytopenia (HCC); Numbness; Vitamin D deficiency; Body mass index (BMI) 32.0-32.9, adult. no prior visits with DONALD FLOWERS OV: reviewed / relevant details noted below = Relevant past and current data reviewed/ see chart and relevant data copied below-end of note = Epic charting revd/ Care Team updated Patient Care Team: Charles Mcknight MD as PCP - General (Family Medicine) = Current Outpatient Medications on File Prior to Visit Medication Sig Dispense Refill niacin (NIASPAN) 1000 MG CR tablet Take 1,000 mg by mouth at bedtime. Cholecalciferol (D 2000 ORAL) Take by mouth. [place]-3 Fatty Acids (FISH OIL ORAL) Take 4,000 mg by mouth. [place]-Phytosterols (PROSTATE SR ORAL) Take by mouth. amLODIPine (NORVASC) 10 MG tablet Take 1 Tablet by mouth every other day. 90 Tablet 3 metoprolol (TOPROL-XL) 25 mg XL tablet Take 1 Tablet by mouth daily. 90 Tablet 3 losartan-hydrochlorothiazide (HYZAAR) 100-25 MG per tablet Take 1 Tablet by mouth daily. 90 Tablet 3 finasteride (PROSCAR) 5 MG tablet Take 1 Tablet by mouth daily. 90 Tablet 3 allopurinol (ZYLOPRIM) 300 MG tablet Take 1 Tablet by mouth daily. 90 Tablet 3 No current facility-administered medications on file prior to visit. Reviewed PMH / FH/ SH Significant for: see HPI No past medical history on file. No past surgical history on file. No family history on file. Immunization History Administered Date(s) Administered Hep A-Hep B (adult) (CZH=687) 10/07/2010, 11/05/2010, 07/13/2011 Influenza, whole virus (CVX=16) 10/07/2010 Pneumococcal conjugate 20 valent (PCV20), polysaccharide [id number] conjugate, adjuvant, PF (TVJ=925) 08/25/2022 Tdap (ZKS=914) 10/07/2010, 10/23/2011 Typhoid, Vi capsular polysaccharhide (ViCPS) (DAK=671) 10/07/2010 Zoster Live (ZVL,Shingles) (MME=082) 10/23/2016 = Tom was seen today for foot/toe symptoms. Diagnoses and all orders for this visit: Bilateral plantar fasciitis Renal insufficiency Elevated LFTs - HEPATIC FUNCTION PANEL; Future - HEPATIC FUNCTION PANEL Thrombocytopenia (HCC) - COMPLETE BLOOD COUNT W/DIFF; Future - COMPLETE BLOOD COUNT W/DIFF Rising PSA level Hypertriglyceridemia Chronic gout without tophus, unspecified cause, unspecified site Renal cell carcinoma, unspecified laterality (HCC) - COMPLETE BLOOD COUNT W/DIFF; Future - BASIC METABOLIC PANEL; Future - HEPATIC FUNCTION PANEL; Future - HEPATIC FUNCTION PANEL - BASIC METABOLIC PANEL - COMPLETE BLOOD COUNT W/DIFF Vaccine counseling Stage 3a chronic kidney disease (HCC) Other orders - predniSONE (DELTASONE) 10 MG tablet; Take 4 tablets once a day by mouth x 1 d, then 3 tabs once a day x 1 days, then 2 tab x 1 d;1 tab x 1 day and 1/2 tab x 1 d PATIENT INSTRUCTIONS FROM AVS Noted at TOP of this note ROS in addition to HPI: NA Physical exam Vitals: 02/04/24 0947 BP: 147/94 Pulse: 79 Resp: 18 Temp: 98.6 F (37 C) GENERAL APPEARANCE: alert and oriented, NAD. EYES: PERRL, EOMI, no scleral icterus, conjunctiva clear. NECK/THYROID: visually WNL. RESPIRATORY: calm, unlabored SKIN: visually Normal Physical Exam Constitutional: General: He is not in acute distress. Appearance: He is not ill-appearing or toxic-appearing. HENT: Head: Normocephalic and atraumatic. Eyes: General: No scleral icterus. Conjunctiva/sclera: Conjunctivae normal. Neck: Thyroid: No thyromegaly. Cardiovascular: Rate and Rhythm: Normal rate and regular rhythm. Pulmonary: Effort: Pulmonary effort is normal. No respiratory distress. Musculoskeletal: General: Tenderness present. No swelling or deformity. Cervical back: Neck supple. No tenderness. Right lower leg: No edema. Left lower leg: No edema. Feet: Feet: Right foot: Skin integrity: Dry skin present. No ulcer, blister, skin breakdown, erythema or warmth. Left foot: Skin integrity: Dry skin present. No ulcer, blister, skin breakdown, erythema or warmth. Comments: Focal pain bilat heels No pain over lat or post heel/ achilles Lymphadenopathy: Cervical: No cervical adenopathy. Skin: General: Skin is warm and dry. Coloration: Skin is not jaundiced or pale. Findings: No erythema or rash. Neurological: Mental Status: He is alert and oriented to person, place, and time. Psychiatric: Mood and Affect: Mood and affect normal. Cognition and Memory: Memory normal. Judgment: Judgment normal. Donald Flowers MD 02/04/24 . * * . ... . . * * . ... . . * * . * * . ... . . * * . ... . . * * . Time-based billing justifications: Reviewing (chart, labs, and other clinical notes) Obtaining history (or reviewing separately obtained history) Patient visit (including performing a medically appropriate exam) Counseling/educating the patient/family/caregiver Ordering (medications, tests, procedures - including independent interpretation of results when not reported separately) Referring/communicating with other health patient care assistant - when not reported separately Charting in [facility] ~~~~~~~~~~~~~~~~~~~~~~~~~~~~~~~~ ~~~~~~~~~~~ Relevant Past Data ~~~~recent past visits/ consult :partial copy/ edited for clarity & brevity~~~~~~~~~~~~~~~~~~ Precharting [facility] chart review: past visits/ consults /labs / imaging rogress Notes Charles Mcknight MD (Physician) Family Medicine Your blood counts, kidney function, blood sugar, thyroid function and cholesterol were normal. The triglycerides were elevated so please watch carbs in the diet. The liver function tests were somewhat elevated but consistent with where they have been over the last few years. The vitamin B12 levels and vitamin-D levels were good. The PSA was 5.5 which is lower than what it was 2 years ago and higher than what was year ago so please share this information with Urology. Progress Notes Charles Mcknight MD (Physician) Family Medicine Expand All Collapse All ANNUAL WELLNESS VISIT Mr. Tejeda is a 68 year old who is being seen for his Annual Wellness Visit. 10/08/2021 8:42 AM 08/25/2022 9:48 AM 08/26/2023 1:32 PM WBC 6.8 6.7 7.5 RBC 5.65 5.47 5.43 Hemoglobin 15.8 16.0 15.8 Hematocrit 47.4 45.9 46.3 MCV 84 84 85 MCH 27.9 29.3 29.1 MCHC 33.2 34.9 34.2 Platelet 140 (L) 124 (L) 142 (L) RDW-CV% 14.7 (H) 13.8 13.9 MPV 9.4 9.7 9.8 Neutrophils 68.7 71.7 68.3 Neutrophil # 4.65 4.79 5.14 Lymphocytes 18.5 (L) 14.9 (L) 17.8 (L) Lymph Absolute 1.25 1.00 1.34 Monocytes 10.1 10.7 11.4 (H) Monocyte Absolute 0.68 0.71 0.86 Eosinophil 2.1 1.9 1.7 Eosinophil Absolute 0.14 0.13 0.13 Basophils 0.6 0.9 0.7 Basophil # 0.04 0.06 0.06 Glucose 105 113 94 Sodium 141 141 143 Potassium 4.2 3.7 3.7 Carbon Dioxide 26 28 30 Chloride 104 104 103 BUN 19 15 15 Creatinine 1.20 1.35 (H) 1.18 Calcium 9.5 9.5 10.1 Anion Gap 15 13 14 Estimated GFR 63 58 (L) 68 Cholesterol 214 (H) 198 191 Triglycerides 344 (H) 303 (H) 555 (H) HDL Cholesterol 30 (L) 28 (L) 31 (L) LDL cholesterol 140 (H) 131 (H) 86 NONHDL 184 (H) 170 (H) 160 (H) Chol/HDL Ratio 7.13 (H) 7.07 (H) 6.16 (H) LDL/HDL Ratio 4.67 (H) 4.68 (H) Albumin 4.2 4.2 4.5 Bilirubin, Direct 0.10 0.20 0.14 Bilirubin, Total 1.0 1.1 0.8 Alkaline Phosphatase 45 47 55 ALT (SGPT) 68 (H) 72 (H) 88 (H) AST (SGOT) 35 49 (H) 44 (H) Protein, Total 6.8 6.7 7.3 Hemoglobin A1c 5.7 (H) 5.5 5.5 Estimated Avg Glucose 117 111 111 PSA 3.87 5.528 (H) TSH (high sens.) 1.659 1.563 1.497 Vitamin B12 319 Vitamin D, 25-OH 34 Legend: (L) Low (H) High ~~~~~~~~~~~~~~~~~~~~~~~~~~~~~~~~ ~~~~~~~~~~~ Relevant Past Data Above /between red lines. Please review NOTE from beginning: Plan at the top. .?/ ./? ./ \ . * * . ... . . * * . Donald Flowers MD . * * . ... . . * * .. * * . ... . . * * . Donald Flowers MD Identification was verified by patient verbalizing his name and date of . documented in this encounter [facility] 02-04-2024 Instructions Donald Flowers MD - 02/04/2024 9:52 AM EDT You have severe bilateral plantar fasciitis x5 weeks You are not able to take anti-inflammatories due to past renal insufficiency and renal cell cancer Tylenol should not be used either due to past elevation of liver enzymes: Repeat labs ordered and likely will order ultrasound to follow this up Ice and prednisone burst and taper Supportive shoes at all times: Consider heel cup Stretches and exercises Next step referral to Podiatry or ortho for injections or other Hold x-ray for now Make sure urology is aware of the rising PSA level and clarify if they want a six-month follow up which would be due in February VACCINES SAVE LIVES!!! Several vaccines are recommended: Can get together or separate by 2 weeks Priority order : based on potential for severe illness/ and community spread: Covid booster (updated/ improved) (must be done at ANY pharmacy) new RSV vaccine (if over 60 and especially if heart/lung issues) (get at pharmacy) Tdap (get at pharmacy if MEDICARE) shingles (series of 2 / get at pharmacy if MEDICARE) Health Maintenance Due Topic Date Due COVID-19 Vaccine (1) Never done Shingles (RZV) Vaccine (2 of 3) 12/18/2016 Tetanus (Td or Tdap) Booster 10/23/2021 RSV vaccine (optional 60+ years) 2016 = Due to ongoing COVID cases / new HIGHLY CONTAGIOUS variants PLEASE GET FULLY VACCINATED FOR YOURSELF FOR YOUR FAMILY FOR YOUR COMMUNITY FOR THE HEALTHCARE WORKERS Vaccines decrease incidence of severe illness, hospitalization, , long hauler syndrome and other long-term sequela Vaccines have been shown to be safe with no long-term sequela COVID is now showing to affect people long-term with regards to heart, vascular system, immune system and other: It is NOT A BENIGN DISEASE NEW 12/2023 Recommending additional COVID vaccine for 65+ WHAT IS CHANGING? The CDC recommends an additional dose of the 8567-4079 formulation of the COVID vaccine to patients who are 65+ and are 4+ months past their most recent such dose. WHY IS IT CHANGING? This is to help protect against an anticipated surge of COVID infections over the summer . Reach out with questions and concerns Prioritize getting your COVID-19 vaccine BOOSTER or primary series CDC recommends keeping COVID-19 vaccine by 14 days from other vaccinations (unless given AT THE SAME TIME) IF you are due for other vaccines: get at the same time OR by 14 days COVID 19 Updates - NEW Vaccine Information [facility] recommends updated COVID-19 vaccine for 9240-2721 (Omicron XBB.1.5) to all patients 6+ months of age The Advisory Committee on Immunization Practices (ACIP) recommends at least one dose of an updated COVID vaccine for all patients 6+ months of age. [facility] now offers updated COVID-19 vaccines by appointment only at our 11 pharmacies. Patients can schedule through [employer] or by calling [phone] ([phone]). These new vaccines are designed to teach the body how to fend off the current crop of circulating variants of COVID-19. Cases are on the rise in our community, and vaccines remain our strongest defense against serious illness. The Centers for Disease Control and Prevention recommends everyone ages 6 and older get at least one dose of an updated mRNA vaccine this year regardless of whether they've received any of the original COVID shots. Covid pandemic is NOT over We will continue to get more variants, spread, illness and : the following measures will help! Please do your part! MASKING: please protect yourself by continuing to mask and physical distance especially indoors Consider getting a mask that will protect you from others since many are going unmasked -- N95 or KN95 masks are ideal (cloth masks do NOT give adequate protection for you against others) And caution around others especially elderly and unvaccinated INCLUDING YOUNG CHILDREN TESTING ~~increase testing!! -when exposed -when symptomatic (test daily as needed) -when going to visit vulnerable (elderly / / infants/ immunosuppressed) -when gathering in a large group/ parties (before and perhaps after!) You can order free tests online from the [place] government or get FREE at most public libaries Contact [facility] 24 hour nurse line at [phone] as needed Covid Vaccines are available for ALL age 6 months and up No insurance needed / one does NOT need to be an established [facility] patient call [phone] to schedule Or Call 21-1 to sign up at locations outside of [facility] Vaccines are the best way to speed up the end of the Covid pandemic and prevent further mutations. Vaccines are how we as a community protect each other. Vaccines prevent , severe disease and snf complications (including LONG HAULERS) Currently those in the hospital ICUs and dying are predominantly the UNVACCINATED. For those who choose to remain UNVACCINATED, consider discussing with your family what your wishes would be if you were sick enough to be intubated/ on a breathing machine. VACCINES SAVE LIVES!!! The following attachments cannot be sent through Care Everywhere.Heel pain caused by plantar fasciitis (Liberian)Plantar Fasciitis Exercises ([place]iberian)Low Cholesterol, Saturated Fat, and Trans Fat Diet (Liberian)Chronic kidney disease ([place]iberian)documented in this encounter [facility] 02-04-2024 Instructions Donald Flowers MD - 02/04/2024 9:52 AM EDT You have severe bilateral plantar fasciitis x5 weeks You are not able to take anti-inflammatories due to past renal insufficiency and renal cell cancer Tylenol should not be used either due to past elevation of liver enzymes: Repeat labs ordered and likely will order ultrasound to follow this up Ice and prednisone burst and taper Supportive shoes at all times: Consider heel cup Stretches and exercises Next step referral to Podiatry or ortho for injections or other Hold x-ray for now Make sure urology is aware of the rising PSA level and clarify if they want a six-month follow up which would be due in February VACCINES SAVE LIVES!!! Several vaccines are recommended: Can get together or separate by 2 weeks Priority order : based on potential for severe illness/ and community spread: Covid booster (updated/ improved) (must be done at ANY pharmacy) new RSV vaccine (if over 60 and especially if heart/lung issues) (get at pharmacy) Tdap (get at pharmacy if MEDICARE) shingles (series of 2 / get at pharmacy if MEDICARE) Health Maintenance Due Topic Date Due COVID-19 Vaccine (1) Never done Shingles (RZV) Vaccine (2 of 3) 12/18/2016 Tetanus (Td or Tdap) Booster 10/23/2021 RSV vaccine (optional 60+ years) 2016 = Due to ongoing COVID cases / new HIGHLY CONTAGIOUS variants PLEASE GET FULLY VACCINATED FOR YOURSELF FOR YOUR FAMILY FOR YOUR COMMUNITY FOR THE HEALTHCARE WORKERS Vaccines decrease incidence of severe illness, hospitalization, , long hauler syndrome and other long-term sequela Vaccines have been shown to be safe with no long-term sequela COVID is now showing to affect people long-term with regards to heart, vascular system, immune system and other: It is NOT A BENIGN DISEASE NEW 12/2023 Recommending additional COVID vaccine for 65+ WHAT IS CHANGING? The CDC recommends an additional dose of the 2489-4659 formulation of the COVID vaccine to patients who are 65+ and are 4+ months past their most recent such dose. WHY IS IT CHANGING? This is to help protect against an anticipated surge of COVID infections over the summer . Reach out with questions and concerns Prioritize getting your COVID-19 vaccine BOOSTER or primary series CDC recommends keeping COVID-19 vaccine by 14 days from other vaccinations (unless given AT THE SAME TIME) IF you are due for other vaccines: get at the same time OR by 14 days COVID 19 Updates - NEW Vaccine Information [facility] recommends updated COVID-19 vaccine for 4195-8873 (Omicron XBB.1.5) to all patients 6+ months of age The Advisory Committee on Immunization Practices (ACIP) recommends at least one dose of an updated COVID vaccine for all patients 6+ months of age. [facility] now offers updated COVID-19 vaccines by appointment only at our 11 pharmacies. Patients can schedule through [employer] or by calling [phone] ([phone]). These new vaccines are designed to teach the body how to fend off the current crop of circulating variants of COVID-19. Cases are on the rise in our community, and vaccines remain our strongest defense against serious illness. The Centers for Disease Control and Prevention recommends everyone ages 6 and older get at least one dose of an updated mRNA vaccine this year regardless of whether they've received any of the original COVID shots. Covid pandemic is NOT over We will continue to get more variants, spread, illness and : the following measures will help! Please do your part! MASKING: please protect yourself by continuing to mask and physical distance especially indoors Consider getting a mask that will protect you from others since many are going unmasked -- N95 or KN95 masks are ideal (cloth masks do NOT give adequate protection for you against others) And caution around others especially elderly and unvaccinated INCLUDING YOUNG CHILDREN TESTING ~~increase testing!! -when exposed -when symptomatic (test daily as needed) -when going to visit vulnerable (elderly / / infants/ immunosuppressed) -when gathering in a large group/ parties (before and perhaps after!) You can order free tests online from the federal government or get FREE at most public libaries Contact [facility] 24 hour nurse line at [phone] as needed Covid Vaccines are available for ALL age 6 months and up No insurance needed / one does NOT need to be an established [facility] patient call [phone] to schedule Or Call [phone] to sign up at locations outside of [facility] Vaccines are the best way to speed up the end of the Covid pandemic and prevent further mutations. Vaccines are how we as a community protect each other. Vaccines prevent , severe disease and snf complications (including LONG HAULERS) Currently those in the hospital ICUs and dying are predominantly the UNVACCINATED. For those who choose to remain UNVACCINATED, consider discussing with your family what your wishes would be if you were sick enough to be intubated/ on a breathing machine. VACCINES SAVE LIVES!!! The following attachments cannot be sent through Care Everywhere.Heel pain caused by plantar fasciitis (Liberian)Plantar Fasciitis Exercises (Liberian)Low Cholesterol, Saturated Fat, and Trans Fat Diet (Liberian)Chronic kidney disease (Liberian)documented in this encounter [facility] 08-30-2023 Telephone encounter Note Patient returned clinic call. Informed of message per notes below. Patient verbalized understanding and voiced no further questions. [facility] 08-30-2023 Miscellaneous Notes Patient returned clinic call. Informed of message per notes below. Patient verbalized understanding and voiced no further questions. I have attempted to contact this patient by phone to return their call, but there is no answer. Will try again later. LMTCB If pt calls back please see lab message below Thank you ----- Message from Charles Mcknight MD sent at 08/27/2023 3:36 PM EDT ----- Your blood counts, kidney function, blood sugar, thyroid function and cholesterol were normal. The triglycerides were elevated so please watch carbs in the diet. The liver function tests were somewhat elevated but consistent with where they have been over the last few years. The vitamin B12 levels and vitamin-D levels were good. The PSA was 5.5 which is lower than what it was 2 years ago and higher than what was year ago so please share this information with Urology. documented in this encounter [facility] 08-30-2023 Telephone encounter Note I have attempted to contact this patient by phone to return their call, but there is no answer. Will try again later. LMTCB If pt calls back please see lab message below Thank you [facility] 08-30-2023 Telephone encounter Note ----- Message from Charles Mcknight MD sent at 08/27/2023 3:36 PM EDT ----- Your blood counts, kidney function, blood sugar, thyroid function and cholesterol were normal. The triglycerides were elevated so please watch carbs in the diet. The liver function tests were somewhat elevated but consistent with where they have been over the last few years. The vitamin B12 levels and vitamin-D levels were good. The PSA was 5.5 which is lower than what it was 2 years ago and higher than what was year ago so please share this information with Urology. [facility] 08-26-2023 History of Present illness Narrative Identification was verified by patient verbalizing his name and date of . Identity was confirmed by verifying patient name and date of . Blood drawn for patient. Blood obtained from rt arm, using 23 gauge butterfly. Patient denies discomfort, bleeding controlled, bandage applied. Site appears normal. Patient was identified by name and date of . Jazzy Bryant ANNUAL WELLNESS VISIT Mr. Tejeda is a 68 year old who is being seen for his Annual Wellness Visit. I have reviewed and updated the following information (Care Team, Medical History, Surgical History, Social history, Family history and current medications including zehw-eeg-admdkxr medications and supplements): Patient Care Team: Charles Mcknight MD as PCP - General (Family Medicine) History reviewed. No pertinent past medical history. History reviewed. No pertinent surgical history. No family history on file. Social History Socioeconomic History Marital status: Tobacco Use Smoking status: Never Smokeless tobacco: Never No current outpatient medications on file prior to visit. No current facility-administered medications on file prior to visit. I have reviewed the following additional information for Mr. Tejeda. Falls Risk Screen Falls Risk Screen Fall History (past 12 months): No Fallen with Injury?: No Problems with Walking or Balance?: (!) Yes PHQ Depression Screen PHQ-9 Depression Screen Decreased Interest / Pleasure?: Not at all Down / Depressed / Hopeless?: Not at all PHQ-2 Total: 0 PHQ2 Interpretation: Screening is Negative Hearing Screen Hearing Screen Have you noticed any changes with your hearing? : (!) Yes Vision Screen Vision Screen Have you noticed any changes with your vision? : (!) Yes Snellen (Eye Exam) Test been completed?: N/A Advance Directives Advance Directives Advance Directives?: Yes - paper copy with patient Type of Advance Directive: Living Will;Organ Donation Mini COG Mini-Cog Copyright Elise Ramires (used by permission of the author) Remember FIRST word?: Yes Remember SECOND word?: Yes Remember THIRD word?: Yes Clock Diagram correct?: Yes Mini COG Total Score: 5 Health Risk Assessment No questionnaire available. Health Risk Assessment Flowsheet Row Patient response During the past four weeks, how much have you been bothered by emotional problems such as feeling anxious, depressed, irritable, sad, or downhearted and blue? Slightly at 08/26/2023 1339 During the past four weeks, has your physical and emotional health limited your social activities with family, friends, neighbors, or groups? Not at all at 08/26/2023 1339 During the past four weeks, how much bodily pain have you generally had? Moderate at 08/26/2023 1339 During the past four weeks, was someone available to help you if you needed and wanted help? Yes, as much as I want at 08/26/20231338 During the past four weeks, what was the hardest physical activity you could do for at least two minutes? Moderate at 08/26/20231338 Can you get to places out of walking distance without help? Y at 08/26/2023 133 Can you go shopping for groceries or clothes without someone s help? Y at 08/26/20231338 Can you prepare your own meals? Y at 08/26/20231338 Can you do your housework without help? Y at 08/26/20231338 Because of any health problems, do you need the help of another person with your personal care needs? N at 08/26/20231338 Can you handle your own money without help? Y at 08/26/2023 133 During the past four weeks, how would you rate your health in general? Good at 08/26/20231338 How have things been going for you during the past four weeks? Pretty well at 08/26/20231338 Are you having difficulties driving your car? No at 08/26/20231338 Do you fasten your seatbelt when you are in a car? Always at 08/26/20231338 Falling or feeling dizzy when standing up? (past 4 weeks) Sometimes at 08/26/20231338 Sexual problems? (past 4 weeks) Always at 08/26/20231338 Trouble eating well? (past 4 weeks) Never at 08/26/20231338 Tooth or denture problems? (past 4 weeks) Seldom at 08/26/20231338 Problems using the telephone? (past 4 weeks) Never at 08/26/20231338 Tiredness or fatigue? (past 4 weeks) Often at 08/26/20231338 Do you exercise for about 20 minutes three or more days a week? Yes, some of the time at 08/26/20231338 Have you been given any information to help you with hazards in your house that might hurt you? Y at 08/26/2023 1339 Have you been given any information to help you with keeping track of your medications? Y at 08/26/2023 1339 How often do you have trouble taking medicines the way you have been told to take them? I always take them as prescribed at 08/26/2023 1339 How confident are you that you can control and manage most of your health problems? Somewhat confident at 08/26/2023 1339 Physical examination Vital signs: BP 136/86 Pulse 72 Temp 97.3 F (36.3 C) (Temporal) Resp 16 Ht 5' 11 (1.803 m) Wt 234 lb (106.1 kg) BMI 32.64 kg/m WNL End of life preferences: Patient has an advanced care plan and I am willing to follow their expressed wishes. I have provided counseling and referral for the following areas: Counseling: Medical Issues Referrals: Please see orders Assessment/Plan: Orders Placed This Encounter Procedures Prostate Specific Antigen (PSA) Full Lipid Profile TSH Hepatic Function Panel Basic Metabolic Panel Complete Blood Count W/Diff Hemoglobin A1C Vitamin B12 (Cyanocobalamin) Vitamin D, 25-Hydroxy 1. Medicare annual wellness visit, subsequent 2. Essential hypertension 3. Encounter for long-term (current) use of medications 4. Hypercholesteremia 5. Idiopathic chronic gout of multiple sites without tophus 6. Prediabetes 7. Benign prostatic hyperplasia, unspecified whether lower urinary tract symptoms present 8. Renal cell carcinoma, unspecified laterality (HCC) 9. Thrombocytopenia (HCC) 10. Numbness 11. Vitamin D deficiency Additional concerns: labs documented in this encounter [facility] 08-26-2023 Instructions Charles Mcknight MD - 08/26/2023 12:17 PM EDT Personalized Preventive Plan for Tom Tejeda - 08/26/2023 - A preventive eye exam performed by an loss mitigation specialist is recommended every 1-2 years to screen for glaucoma, cataracts, macular degeneration, and other eye disorders - A preventive dental visit is recommended every 6 months - Try to get at least 150 minutes of exercise per week or 10,000 steps per day on a pedometer - Order FREE booklet Get Fit For Life: Exercise & Physical Activity for Healthy Aging from [employer] on Agin5-157-639-5401 or https://order.jyotsna.nih.gov/public ation/yjl-wzg-hyu-life-exercise- ulovgnyb-vhmacqoa-pys-healthy-ag ing - You need 0303-4892 mg of calcium and 6680-0500 IU of vitamin D per day - it is possible to meet your calcium requirement with diet alone, but a vitamin D supplement is usually necessary to meet this goal - When exposed to sun, use a sunscreen that protects against both UVA and UVB radiation with an SPF of 30 or greater - reapply every 2 to 3 hours or after sweating, drying off with a towel, or swimming - Always wear a seat belt when traveling in a car, and a helmet when riding a bicycle or motorcycle documented in this encounter [facility] 08-31-2022 Telephone encounter Note Care gaps scheduling Health maintenance: Medicare AWV/PCP Visit not due Eye Exam:not due Foot Exam:not due Annual Bloodwork:not due CHANCE:na FIT:not due [facility] 08-31-2022 Miscellaneous Notes Care gaps scheduling Health maintenance: Medicare AWV/PCP Visit not due Eye Exam:not due Foot Exam:not due Annual Bloodwork:not due CHANCE:na FIT:not due documented in this encounter [facility] Evaluation note No assessment inform ation available [facility] Work Phone: Evaluation note Diagnosis Medicare annual wellness visit, subsequent- Primary Essential hypertension Unspecified essential hypertension Encounter for long-term (current) use of medications Encounter for long-term (current) use of other medications Hypercholesteremia Pure hypercholesterolemia Idiopathic chronic gout of multiple sites without tophus Chronic gouty arthropathy without mention of tophus (tophi) Prediabetes Other abnormal glucose Benign prostatic hyperplasia, unspecified whether lower urinary tract symptoms present Renal cell carcinoma, unspecified laterality (HCC) Thrombocytopenia (HCC) Thrombocytopenia, unspecified Numbness Disturbance of skin sensation Vitamin D deficiency Unspecified vitamin D deficiency Body mass index (BMI) 32.0-32.9, adult [facility] Bilateral plantar fasciitis- Primary Renal insufficiency Unspecified disorder of kidney and ureter Elevated LFTs Other abnormal blood chemistry Thrombocytopenia (HCC) Thrombocytopenia, unspecified Rising PSA level Hypertriglyceridemia Pure hyperglyceridemia Chronic gout without tophus, unspecified cause, unspecified site Renal cell carcinoma, unspecified laterality (HCC) Vaccine counseling Stage 3a chronic kidney disease (HCC) Body mass index (BMI) 32.0-32.9, adult [facility] Diagnosis Bilateral plantar fasciitis- Primary Renal insufficiency Unspecified disorder of kidney and ureter Elevated LFTs Other abnormal blood chemistry Thrombocytopenia (HCC) Thrombocytopenia, unspecified Rising PSA level Hypertriglyceridemia Pure hyperglyceridemia Chronic gout without tophus, unspecified cause, unspecified site Renal cell carcinoma, unspecified laterality (HCC) Vaccine counseling Stage 3a chronic kidney disease (HCC) Body mass index (BMI) 32.0-32.9, adult [facility] Diagnosis Elevated LFTs- Primary Other abnormal blood chemistry Renal cell carcinoma, unspecified laterality (HCC) Elevated glucose Other abnormal glucose [facility] Diagnosis Elevated LFTs- Primary Other abnormal blood chemistry Renal cell carcinoma, unspecified laterality (HCC) Elevated glucose Other abnormal glucose [facility] Diagnosis Medicare annual wellness visit, subsequent- Primary Essential hypertension Unspecified essential hypertension Idiopathic chronic gout of multiple sites without tophus Chronic gouty arthropathy without mention of tophus (tophi) Prediabetes Other abnormal glucose Encounter for long-term (current) use of medications Encounter for long-term (current) use of other medications Benign prostatic hyperplasia, unspecified whether lower urinary tract symptoms present Renal cell carcinoma, unspecified laterality (HCC) Hypercholesteremia Pure hypercholesterolemia Vitamin D deficiency Unspecified vitamin D deficiency Body mass index (BMI) 32.0-32.9, adult [facility])No reason for referral information availableWAvita Health [facility] Work Phone: Summary Purpose Family History No Family History Records FoundNo Family History Records FoundNo Family History Records FoundNo Family History Records FoundNo Family History Records FoundNo Family History Records FoundNo Family History Records FoundNo Family History Records FoundNo Family History Records FoundNo Family History Records Found Advance Directives No Advanced Directives Records FoundDocuments on File Type Date Recorded Patient Postpartum Rn Expl anation Advance Directives and Living Will Power of Business Editor Chief Complaint and Reason for Visit Chief Complaint PSA Reason for Referral Specialty Diagnoses / Procedures Referred By Contac t Referred To Contact Radiology Diagnoses Elevated LFTs Renal cell carcinoma, unspecified laterality (HCC) Procedures US LIVER ONLY Donald Flowers MD [address] [place] [address] [facility] [address] [place] [address] Referral ID Status Reason Start Date Expiration Date V isits Requested Visits Authorized [id number] Authorized 02/20/2024 02/19/2025 1 1 Additional Source Comments (unrecognized sect ion and content) No Status Records FoundNo Status Records FoundNo Status Records FoundNo Status Records FoundNo Status Records FoundNo Status Records FoundNo Status Records FoundNo Status Records FoundNo Status Records FoundNo Status Records Found INFORMATION SOURCE (unrecogn ized section and content) DATE CREATED AUTHOR 05/25/2018 [facility] DATE CREATED AUTHOR AUTHOR'S ORGANIZ ATION 10/16/2018 [facility] DATE CREATED AUTHOR AUTHOR'S ORGANIZ ATION 12/12/2018 [facility] DATE CREATED AUTHOR AUTHOR'S ORGANIZ ATION 01/07/2019 [facility] DATE CREATED AUTHOR AUTHOR'S ORGANIZ ATION 05/31/2019 [facility] DATE CREATED AUTHOR AUTHOR'S ORGANIZ ATION 07/27/2019 [facility] DATE CREATED AUTHOR AUTHOR'S ORGANIZ ATION 07/31/2019 [facility] DATE CREATED AUTHOR AUTHOR'S ORGANIZ ATION 07/27/2025 [facility] DATE CREATED AUTHOR AUTHOR'S ORGANIZ ATION 08/23/2025 [facility] DATE CREATED AUTHOR AUTHOR'S ORGANIZ ATION 09/01/2025 [facility] Goals (unrecognized section and content) Goals may be documented in a n alternate sectionGoals may be documented in an alternate sectionGoals may be documented in an alternate sectionGoals may be documented in an alternate sectionGoals may be documented in an alternate section Reason for Visit (unrecogniz ed section and content) Reason Onset Date Comments Medical Record Review 08/31/2022 Reason Comments Refill Reason Comments Medicare Wellness Reason Comments Foot/toe symptoms Feet pain Reason Onset Date Comments Abnormal test results 02/20/2024 Reason Onset Date Comments liver issue 03/02/2024 Reason Onset Date Comments Update 03/22/2025 Reason Onset Date Comments Refill 12/01/2024 Encounter opened in error 12/01/2024 Reason Onset Date Comments Lab results 11/29/2024 Reason Comments Medicare Wellness Reason Onset Date Comments FYI 08/21/2025 Care Teams (unrecognized sec tion and content) Senior Support Engineer Relationship Specialty Start Date End Date Charles Mcknight MD [address] [place] [address] PCP - General Family Medicine 10/08/21 Team Status: Active Member Role Status Dates Dr. Charles Mcknight MD Primary Care Provider Active Team Status: Inactive Member Role Status Dates Dr. Charles Mcknight MD Primary Care Provider Active Dr. Nadeem Alba MD Attending Provider Act bailye Senior Support Engineer Relationship Specialty Start Date End Date Charles Mcknight MD [address] [place] [address] PCP - General Family Medicine 10/08/21 Senior Support Engineer Relationship Specialty Start Date End Date Charles Mcknight MD [address] [facility] [place] [address] PCP - General Family Medicine 10/08/21 Team Status: Inactive Member Role Status Dates Dr. Charles Mcknight MD Primary Care Provider Active Dr. Paco Li MD Attending Provider, Referring [facility] ider Active Team Status: Inactive Member Role Status Dates Dr. Charles Mcknight MD Primary Care Provider Active Dr. Nadeem Alba MD Attending Provider, ferring Provider Active Senior Support Engineer Relationship Specialty Start Date End Date Charles Mcknight MD [address] [facility] [place] [address] PCP - General Family Medicine 10/08/21 Senior Support Engineer Relationship Specialty Start Date End Date Charles Mcknight MD [address] [place] [address] [place] [address] PCP - General Family Medicine 10/08/21 Senior Support Engineer Relationship Specialty Start Date End Date Charles Mcknight MD [address] [place] [address] [place] [address] PCP - General Family Medicine 10/08/21 Senior Support Engineer Relationship Specialty Start Date End Date Charles Mcknight MD [address] [place] [address] [place] [address] PCP - General Family Medicine 10/08/21 Senior Support Engineer Relationship Specialty Start Date End Date Charles Mcknight MD [address] [place] [address] [place] [address] PCP - General Family Medicine 10/08/21 Senior Support Engineer Relationship Specialty Start Date End Date Charles Mcknight MD [address] [place] [address] [place] [address] PCP - General Family Medicine 10/08/21 Team Status: Inactive Member Role Status Dates Dr. Charles Mcknight MD Primary Care Provider Active Start: November 28, 2024 End: November 28, 2024 ROBERT RIGGINS MD Attending Provider Active Start: November 28, 2024 End: November 28, 2024 ROBERT RIGGINS MD Referring Provider Active Start: November 28, 2024 End: November 28, 2024 Team Status: Inactive Member Role Status Dates Dr. Charles Mcknight MD Primary Care Provider Active Start: December 21, 2024 End: December 21, 2024 Dr. Nadeem Alba MD Attending Provider Active Start: November End: December 21, 2024 Dr. Nadeem Alba MD Referring Provider Active Start: November End: December 21, 2024 Senior Support Engineer Relationship Specialty Start Date End Date Charles Mcknight MD [address] [place] [address] [place] [address] PCP - General Family Medicine 10/08/21 Senior Support Engineer Relationship Specialty Start Date End Date Charles Mcknight MD [address] [place] [address] [place] [address] PCP - General Family Medicine 10/08/21 Senior Support Engineer Relationship Specialty Start Date End Date Charles Mcknight MD [address] [place] [address] [place] [address] PCP - General Family Medicine 10/08/21 Senior Support Engineer Relationship Specialty Start Date End Date Charles Mcknight MD [address] [place] [address] [place] [address] PCP - General Family Medicine 10/08/21 Senior Support Engineer Relationship Specialty Start Date End Date Charles Mcnkight MD [address] [place] [address] [place] [address] PCP - General Family Medicine 10/08/21 FOR RECORDS PERTAINING TO PATIENTS WHO ARE OR HAVE BEEN ENROLLED IN A CHEMICAL DEPENDENCY/SUBSTANCEABUSE PROGRAM, SOME INFORMATION MAY BE OMITTED. This clinical summary was aggregated from multiple sources. Caution should be exercised in using it in the provision of clinical care. This summary normalizes information from multiple sources, and as a consequence, information in this document may materially change the coding, format and clinical context of patient data. In addition, data may be omitted in some cases. CLINICAL DECISIONS SHOULD BE BASED ON THE PRIMARY CLINICAL RECORDS. [facility]. provides no warranty or guarantee of the accuracy or completeness of information in this document.
[2025-09-21 11:44] LABS: PSA,Total- Diagnostic 10.40 ng/mL (0.00-4.00)
== END | disposition home or self-care (01) ==
LOC: LAB 10:27
PROVIDERS: PCP Family Medicine; Referring Provider Urology; Visit Provider Urology
DX: N40.1 Benign prostatic hyperplasia with lower urinary tract symptoms (principal)
CPT/HCPCS: 36415; 84153